=== PATIENT | female | born 1945 | race Caucasian/White ===

== ENCOUNTER 2017-05-07 02:44 | Inpatient (IN) | payer MEDICARE, MEDICAID ==
[~2017-05-07] VITALS: Ht 165.1 cm; Wt 75.0 kg
[~2017-05-07 02:44] MED LIST: ALLOPURINOL300 MG PO; ASMANEX 120220 MCG IN; ASPIRIN81 M1 OR; ASPIRIN81 MG PO; ATENOLOL50 MG OR; BYETTA5 MCG SC; CELEBREX200 MG OR; CELEBREX200 MG PO; CEPHALEXIN250 MG OR; CEPHALEXIN500 MG PO; CHILD'S ASA81 MG OR; CRESTOR10 MG PO; CRESTOR40 MG PO; CRESTOR5 MG PO; DARVOCET N-100100 - OR; DEXILANT60 MG PO; ELIQUIS5 MG PO; ENALAPRIL5 MG PO; FEXOFENADINE180 MG OR; FLAGYL500 MG PO; FLEXERIL PO; FLEXERIL10 MG PO; FLEXERIL5 MG PO; FLONASE NASAL50 MCG; GRALISE300 MG PO; ISOSORB DIN30 MG OR; LANTUS SC; LANTUS SOLOSTAR SC; LANTUS100 MG/ML SC; LEXAPRO10 MG OR; LEXAPRO10 MG PO; LORAZEPAM0.5 MG PO; LORAZEPAM1 MG OR; LORTAB 5 OR; LORTAB 7.5 PO; LORTAB 7.57.5 MG PO; MEDDOSEPAK PO; METFORMIN500 M1 PO; METFORMIN500 MG PO; METOPROL TAR100 M1 PO; MUPIROCIN2 % EX; NEURONTIN100 MG PO; NEURONTIN300 MG PO; NIASPAN500 MG PO; OMEPRAZOLE20 MG PO; PANTOPRAZOLE SO40 MG PO; PLAVIX75 MG PO; PREVACID30 M2 OR; PRILOSEC20 MG PO; PROTONIX40 M2 PO; QUININE PO; SIMVASTATIN80 MG PO; SINGULAIR 10 MG10 MG PO; SINGULAIR10 MG OR; SINGULAIR10 MG PO; SPIRIVA IN; TAMOXIFEN CITRA20 MG PO; TRULICITY0.75 MG/0. SC; VICTOZA18 MG/3 ML SC; WARFARIN5 MG PO; ZANTAC 150 MAX150 MG PO; ZOCOR40 MG OR; ZOFRAN4 MG/TAB PO; ZPAK PO; ZYRTEC-D AL1 OR; [UNRECOGNIZED DRUG - REMARK] PO
--- NOTE | 2017-05-07 02:44 | NUR ---
PT STRAIGHT BACK TO ROOM 10 AND TRIAGED.
[2017-05-07 03:20] LABS: HEMATOCRIT 40.6 % (37.0-47.0); IMMATURE GRANULOCYTES 0.2 % (0.0-1.0); MEAN CELL VOLUME 91.2 fL CALC (80.0-100.0); MEAN CORPUSCULAR HGB 29.2 pG CALC (26.0-32.0); NEUT# 2.99 thou/uL (2.00-7.15); RED BLOOD COUNT 4.45 mill/uL (4.20-5.60); RED CELL DISTRI WIDTH 14.3 % (11.5-15.5)
[2017-05-07 03:31] LABS: ANION GAP 17 (6-22 (CALC)); BUN 21 mg/dL (8-23); BUN/CREATININE RATIO 23 (12-20 (CALC)); CARBON DIOXIDE 24 mmol/l (22-30); CHLORIDE 100 mmol/l (95-108); CREATININE 0.9 mg/dL (0.5-1.0); GFR > 60 ML/MIN (>=60 (CALC)); GFR FOR AFR.AMER. > 60 ML/MIN (>=60 (CALC)); POTASSIUM 4.1 mmol/l (3.5-5.1); SODIUM 137 mmol/l (137-146)
[2017-05-07] MEDS ORDERED: PLAVIX75 MG PO (03:31)
[2017-05-07] MEDS ORDERED: XARELTO10 MG PO (03:31)
--- NOTE | 2017-05-07 03:32 | NUR ---
ASKED PT HOW LONG AGO HER MASTECTOMY WAS, PT NEVER MENTIONED IN TRIAGE, PT STATED 4 YRS AGO.
[2017-05-07 03:37] LABS: D-DIMER 1.09 mg/L (0.19-0.60); PROTHROMBIN TIME 11.3 SECONDS (9.0-12.5)
--- NOTE | 2017-05-07 03:44 | NUR ---
PT RESTING COMFORTABLY AT THIS TIME. SKIN W/P/D, O2 ON VIA CANNULA.
--- NOTE | 2017-05-07 04:00 | NUR ---
PT NEEDING NEW IV SITE DUE TO RIGHT MASTECTOMY AND NEEDING PE STUDY
--- NOTE | 2017-05-07 05:14 | NUR ---
PT RETURNED FROM XRAY. NO OBVIOUS DISTRESS, PLACED BACK ON MONITOR & PULSE OX. PLACED ON O2 VIA CANNULA. AWAITING CLINICAL DECISION ON ADMISSION OR DISCHARGE.
--- NOTE | 2017-05-07 05:59 | NUR ---
PT RESTING COMFORTABLY AT THIS TIME, AWAITING DECISION FOR ADMISSION OR DC.
--- NOTE | 2017-05-07 07:00 | NUR ---
REPORT RECEIVED FROM CINDI IN ED, PT ARRIVED ON UNIT @ 0706 AND SETTLED IN ROOM. ALERT AND ORIENTED X 4, DENIES PAIN AND REPORTED SHE HAD NITRO EARLIER WHICH GAVE HER A SEVERE HEADACHE BUT SHE LATER HAD TYLENOL WHICH RELIEVED PAIN. ORIENTED TO ROOM AND CALL METZ, EDUCATED ON FALL PRECAUTION AND DVT PROPHYLAXIS AND STATED UNDERSTANDING, WILL CONTINUE TO MONITOR.
[2017-05-07 07:02] LABS: CHOLESTEROL HDL RATIO 4.9 (<4.4 (CALC))
[2017-05-07 07:05] VITALS: BP 114/43
[2017-05-07 07:05] LABS: INFLUENZA A NONE DETECTED (NONE DETECT); INFLUENZA B NONE DETECTED (NONE DETECT)
--- NOTE | 2017-05-07 07:15 | NUR ---
Transfer Information Transferred To: Report Given to: Transported by: [facility] [employer] Other Transported with: Nurse Transporter Patent IV O2 Transit Bus Operator
--- NOTE | 2017-05-07 07:16 | NUR ---
REPORT CALLED TO RADHA GUAN ON MED/SURG.
[2017-05-07 07:33] LABS: TSH, 3RD GENERATION 4.26 uIU/mL (0.47 - 4.68)
[2017-05-07] MEDS ORDERED: LANTUS SOL100 UNIT/M SC ×2 (10:06)
[2017-05-07 10:30] VITALS: BP 111/42
[2017-05-07 11:00] VITALS: BP 120/51
--- NOTE | 2017-05-07 12:00 | NUR ---
AMBULATES INDEPENDENTLY IN ROOM, NO C/O DISCOMFORT, ALL NEEDS ADDRESSED, CALL METZ IN REACH.
[2017-05-07 15:55] VITALS: BP 113/43
--- NOTE | 2017-05-07 16:22 | NUR ---
Spoke to pt for medication education rounds. Pt notes no current pain or abdominal cramping. Denies side effects. Asked pt about BG control. Pt claims to take BG BID before meals and tries to keep her BG between 70 mg/dL (fasting) and 140 mg/dL (PP). Pt had no questions or concerns.
--- NOTE | 2017-05-07 17:00 | NUR ---
DR AGUIRRE ROUNDED, REQUEST HE NEEDS PT TO HAVE O2 IN PLACE, ADVISED PT HAD REFUSED EARLIER SO HE EXPLAINED REASON FOR ORDER FOR O2 AND PT ACCEPTED. HUMIDIFIED O2 APPLIED.
[2017-05-07 18:50] VITALS: BP 110/41
--- NOTE | 2017-05-07 19:15 | NUR ---
REPORT RECEIVED FROM ROGE DUGGAN;PT RESTING IN SEMI FOWLERS POSITION WATCHING TV;INTRODUCED SELF TO PT AND POC DISCUSSED;PT DENIES ANY NEEDS AT THIS;ENCOURAGED TO CALL FOR ASSISTANCE IF NEEDED;CALL LIGHT IN REACH;WILL CONTINUE TO MONITOR
--- NOTE | 2017-05-07 21:20 | NUR ---
PT RESTING IN SEMI FOWLERS POSITION;A&O X3;ASSESSMENT COMPLETED;RESPIRATIONS EVEN AND UNLABORED ON HUM OXYGEN @ 2L VIA NC,CLEAR LUNG SOUNDS NOTED;ABDOMEN SOFT UPON PALPATION;STRONG PEDAL PULSES;#20G TO LAC FLUSHED AND PATENT;TELE MONITOR IN PLACE;LIMB ALERT TO RIGHT HAND FROM HX OF MASTECTOMY NOTED;QHS LEVEMIR AND NOVOLOG HELD FOR BS OF 91,SNACK PROVIDED;PT DENIES ANY CP AT THIS TIME AND IS RE-EDUCATED ON PAIN SCALE AND REPORTING;PT ENCOURAGED TO CALL FOR ASSISTANCE IF NEEDED;FALL PRECAUTIONS IN PLACE WITH CALL LIGHT IN REACH;WILL CONTINUE TO MONITOR
[2017-05-08] VITALS (7 sets, daily range): BP systolic 96–177; BP diastolic 46–67
--- NOTE | 2017-05-08 | NUR ---
PT APPEARS TO BE SLEEPING IN SEMI FOWLERS POSITION;WOKE PT TO OBTAIN VS;RESPIRATIONS EVEN AND UNLABORED ON HUM O2 @ 2L VIA NC;TELE MONITOR IN PLACE;PT VOICES NO COMPLAINTS OF PAIN OR DISCOMFORTS;CALL LIGHT IN REACH;WILL CONTINUE TO MONITOR
[2017-05-08 05:30] LABS: HEMATOCRIT 38.4 % (37.0-47.0); HEMOGLOBIN 12.3 g/dl (12.0-16.0); IMMATURE GRANULOCYTES 0.3 % (0.0-1.0); MEAN CELL VOLUME 91.4 fL CALC (80.0-100.0); MEAN CORPUSCULAR HGB 29.3 pG CALC (26.0-32.0); NEUT# 4.26 thou/uL (2.00-7.15); RED BLOOD COUNT 4.2 mill/uL (4.20-5.60); RED CELL DISTRI WIDTH 14.3 % (11.5-15.5)
--- NOTE | 2017-05-08 05:39 | NUR ---
CALL RECEIVED FROM ELAN,LAB REPORTING CRITICAL GLUCOSE 39
[2017-05-08 05:40] LABS: ALBUMIN 3.2 g/dL (3.2-5.0); ALKALINE PHOSPHATASE 88 u/l (38-126); ANION GAP 14 (6-22 (CALC)); BILIRUBIN, TOTAL 0.3 mg/dL (0.0-1.4); BUN 19 mg/dL (8-23); BUN/CREATININE RATIO 20 (12-20 (CALC)); CARBON DIOXIDE 26 mmol/l (22-30); CHLORIDE 108 mmol/l (95-108); CREATININE 0.9 mg/dL (0.5-1.0); GFR > 60 ML/MIN (>=60 (CALC)); GFR FOR AFR.AMER. > 60 ML/MIN (>=60 (CALC)); POTASSIUM 4.2 mmol/l (3.5-5.1); SGOT/AST 35 u/l (9-36); SGPT/ALT 32 u/l (11-66); SODIUM 143 mmol/l (137-146); TOTAL PROTEIN 6.6 g/dL (6.3-8.2)
--- NOTE | 2017-05-08 05:40 | NUR ---
NOTIFIED OF CRITICAL GLUCOSE LEVEL;PEANUT BUTTER,TOBI CRACKERS AND ORANGE JUICE PROVIDED;WILL RE-CHECK IN 1 HOUR'PT VOICES NO COMPLAINTS OF WEAKNESS OR PAIN;RESPIRATIONS EVEN AND UNLABORED ON HUM O2 @ 2L;TELE MONITOR IN PLACE;WILL CONTINUE TO MONITOR
--- NOTE | 2017-05-08 06:20 | NUR ---
GLUCOSE RE-CHECK 80
--- NOTE | 2017-05-08 06:55 | NUR ---
GLUCOSE RE-CHECK 135
--- NOTE | 2017-05-08 07:37 | NUR ---
SHIFT CHANGE REPORT FROM ESAU GRECO SLEEPING BUT AWAKENED TO VERBAL STIMULI NO C/O DISCOMFORT AT THIS TIME, O2 @ 2L IN PLACE VIA NC, TELE MONITOR IN PLACE CALL METZ IN REACH.
--- NOTE | 2017-05-08 08:30 | NUR ---
PT RETURNED FROM XRAY.ALERT AND ORIENTED X3. PLEASANT AND CHATTY.PT STATES SHE HAD L ROTATOR CUFF SURGERY ON 04/23/17. PT HAS A HX OF FALLS; LAST FALL ON 04/24/17. SMALL INCISION SCAR TO LEFT ANTERIOR SHOULDER HEALED WELL; NO REDNESS OR EDEMA NOTED. PT ALSO STATED THAT SHE IS TO BE WEARING HER SLING PER DR WILKERSON OF HOLDERNESS TILL 05/24/17. SLING RE-APPLIED. PT HAS A LIMB ALERT BAND FOR HX OF RIGHT SIDED MASTECTOMY. PT NEUROLOGICALLY INTACT. PERRL.FACIAL SYMMETRY. WHEEZING NOTED ON LEFT LOWER LOBE. PT ON 2L VIA NASAL CANULA. SATS AT 97%. DUE TO HEART STENTS IRREGULAR HEART SOUNDS NOTED. PT ALSO HAS PACEMAKER. ACTIVE BOWEL SOUNDS NOTED IN ALL 4 QUADRANTS. APICAL AND PEDAL PULSES STRONG.#20 IN THE LAC; NO REDNESS OR EDEMA NOTED. CALL METZ IN REACH. BED IN LOWEST POSITION. WILL CONTINUE TO MONITOR. INTACT AND NO REDNESS OR EDEMA NOTED. PT VOICING NO NEW COMPLAINTS. NO DISTRESS NOTED.
--- NOTE | 2017-05-08 19:50 | NUR ---
REPORT RECEIVED FROM ROGE DUGGAN;UPON ENTERING ROOM PT RESTING IN BED WITH VISITOR AT BEDSIDE;INTRODUCED SELF TO PT AND POC DISCUSSED;PT DENIES ANY NEEDS AT THIS TIME;WILL CONTINUE TO MONITOR
--- NOTE | 2017-05-08 21:20 | NUR ---
PT RESTING IN SEMI FOWLERS POSITION WATCHING TV;A&O X3;ASSESSMENT COMPLETED;RESPIRATIONS EVEN AND UNLABORED ON HUM OXYGEN @ 2L VIA NC;CLEAR LUNG SOUNDS NOTED WITH NON PRODUCTIVE COUGH;ABDOMEN SOFT ON PALPATION;#20G TO LAC FLUSHED AND PATENT,SITE APPEARS HEALTHY;SLING TO LEFT ARM FROM ROTATOR CUFF SX ON 04/23,NO EDEMA OR REDDNESS PRESENT;SKIN INTACT;TELE MONITOR IN PLACE;SNACK PROVIDED PER PT REQUEST AND PM INSULIN GIVEN;LIMB ALERT IN PLACE FOR RIGHT MASECTOMY;PT VOICES NO COMPLAINTS OF PAIN AND IS ENCOURAGED TO REPORT ON PAIN SCALE;SAFETY PRECAUTIONS REINFORCED WITH BED IN THE LOWEST POSITION;CALL LIGHT IN REACH;WILL CONTINUE TO MONITOR
--- NOTE | 2017-05-08 23:10 | NUR ---
VS BEING OBTAINED BY RENATO DUKE;RESPIRATIONS EVEN AND UNLABORED ON HUM OXYGEN @ 2L VIA NC;PT DENIES ANY PAIN OR DICOMFORTS;TELE MONITOR IN PLACE;WILL CONTINUE TO MONITOR
--- NOTE | 2017-05-09 03:15 | NUR ---
RENATO CARTER AT BEDSIDE OBTAINING VS;ACCUCHECK 270;PT DENIES ANY PAIN OR DISCOMFORTS;RESPIRATIONS EVEN AND UNLABORED ON HUM OXYGEN @ 2L VIA NC;SLING TO LEFT ARM IN PLACE;TELE MONITOR NOTED;PT ENCOURAGED TO CALL FOR ASSISTANCE IF NEEDED;CALL LIGHT IN REACH;WILL CONTINUE TO MONITOR
[2017-05-09 07:35] VITALS: BP 115/49
--- NOTE | 2017-05-09 07:35 | NUR ---
ASSESSMENT IS COMPLETED: IV SITE IS FREE FROM REDNESS OR EDEMA. HR IS REG,PULSES ARE STRONG X4, ABD IS SOFT WITH ACTIVE BS. CONTINUE TO OBSERVE AND MONITOR. SLING IS INPLACE ON HER LEFT ARM.
[2017-05-09 11:00] VITALS: BP 138/50
--- NOTE | 2017-05-09 12:00 | NUR ---
PT HAS BEEN RELAXING IN BED AND AMBULATING IN THE [place] WITH NO DISTRESS NOTED. IV SITE IS FREE FROM REDNESS OR EDEMA. CONTINUE TO OBSERVE AND MONITOR.
--- NOTE | 2017-05-09 16:00 | NUR ---
PT IS RELAXING IN BED WITH NO DISTRESS NOTED. IV SITE IS FREE FROM REDNESS OR EDEMA.
[2017-05-09 16:43] VITALS: BP 105/50
--- NOTE | 2017-05-09 19:10 | NUR ---
REPORT RECEIVED FROM MARCIA HARRELL;PT RESTING IN BED WITH VISITOR AT BEDSIDE;INTRODUCED SELF TO PT AND POC DISCUSSED;TELE MONITOR IN PLACE;PT DENIES ANY OTHER NEEDS AT THIS TIME;WILL CONTINUE TO MONITOR
[2017-05-09 20:05] VITALS: BP 119/48
[2017-05-09 20:08] VITALS: BP 119/48
--- NOTE | 2017-05-09 21:20 | NUR ---
PT RESTING IN BED WATCHING TV;A&O X3;ASSESSMENT COMPLETED;RESPIRATIONS EVEN AND UNLABORED ON HUM OXYGEN @ 2L VIA NC, LUNG SOUNDS CLEAR WITH WHEEZES TO THE LLL;ABDOMEN SOFT ON PALPATION WITH ACTIVE BOWEL SOUNDS;SLING NOTED TO LEFT ARM FROM ROTATOR CUFF SX ON 04/23/17,SITE IS FREE FROM REDNESS OR EDEMA;#20G TO LAC FLUSHED AND PATENT,SITE APPEARS HEALTHY;TELE MONITOR IN PLACE;SNACK AND COFFEE PROVIDED PER PT REQUEST;SKIN INTACT;SAFETY PRECAUTIONS REINFORCED WITH BED IN THE LOWEST POSITION;PT ENCOURAGED TO CALL FOR ASSISTANCE IF NEEDED;CALL LIGHT WITHIN REACH;WILL CONTINUE TO MONITOR
--- NOTE | 2017-05-09 22:15 | NUR ---
PT AMBULATED ALL 3 HALLWAYS WITH A STEADY GAIT
[2017-05-10] VITALS (7 sets, daily range): BP systolic 88–154; BP diastolic 48–65
--- NOTE | 2017-05-10 00:40 | NUR ---
PT APPEARS TO BE SLEEPING WITH NO S/S OF DISTRESS NOTED;WOKE PT TO OBTAIN VS;RESPIRATIONS EVEN AND UNLABORED ON HUM OXYGEN @ 2L;TELE MONITOR IN PLACE;NON-PRODUCTIVE COUGH NOTED;PT DENIES ANY NEEDS AT THIS TIME;WILL CONTINUE TO MONITOR
--- NOTE | 2017-05-10 03:30 | NUR ---
PT APPEARS TO BE SLEEPING IN SEMI FOWLERS POSITION;RESPIRATIONS EVEN AND UNLABORED ON HUM OXYGEN @ 2L VIA NC;TELE MONITOR IN PLACE;NO S/S OF DISTRESS NOTED;CALL LIGHT IN REACH;WILL CONTINUE TO MONITOR
[2017-05-10 06:11] LABS: HEMATOCRIT 36.6 % (37.0-47.0); HEMOGLOBIN 11.9 g/dl (12.0-16.0); IMMATURE GRANULOCYTES 0.3 % (0.0-1.0); MEAN CELL VOLUME 90.1 fL CALC (80.0-100.0); MEAN CORPUSCULAR HGB 29.3 pG CALC (26.0-32.0); MEAN CORPUSCULAR HGB CONC 32.5 g/L CALC (32.0-36.0); NEUT# 3.05 thou/uL (2.00-7.15); RED BLOOD COUNT 4.06 mill/uL (4.20-5.60); RED CELL DISTRI WIDTH 13.7 % (11.5-15.5)
[2017-05-10 06:29] LABS: ALBUMIN 3.2 g/dL (3.2-5.0); BILIRUBIN, TOTAL 0.3 mg/dL (0.0-1.4); CREATININE 1.1 mg/dL (0.5-1.0); POTASSIUM 4.6 mmol/l (3.5-5.1); TOTAL PROTEIN 6.4 g/dL (6.3-8.2)
--- NOTE | 2017-05-10 06:30 | NUR ---
PT TRANSFERRED OFF FLOOR TO X-RAY VIA WC IN STABLE CONDITION ACCOMPANIED BY RENATO CRUZ
--- NOTE | 2017-05-10 06:40 | NUR ---
PT RETURNED TO FLOOR IN STABLE CONDITION WITH RENATO CRUZ
--- NOTE | 2017-05-10 07:25 | NUR ---
ASSESSMENT IS COMPLETED: IV SITE IS FREE FROM REDNESS OR EDEMA. BREATH SOUNDS ARE CLEAR, BILATERALLY, NO C/O SOB, HR IS REG,PULSES ARE STRONGX4. CONTINUE TO OSBERVE AND MONITOR. SLING INPLACE ON LEFT ARM. TELE MONITOR IN PLACE.
--- NOTE | 2017-05-10 12:00 | NUR ---
PT IS RELAXING IN BED WITH NO DISTRESS NOTED. IV STIE IS FREE FROM REDNESS OR EDMEA. CONTINUE TO OSBERVE AND MONITOR.
--- NOTE | 2017-05-10 15:43 | NUR ---
PT IS RELAXING IN BED WITH NO DISTRESS NTOED. IV SITE IS FREE FROM REDNESS OR EDEAM.
--- NOTE | 2017-05-10 19:20 | NUR ---
REPORT RECIEVED; PT RESTING IN SEMI FOWLERS POSITION. PT DENIES ANY PAIN OR DISCOMFORT. SAFETY PRECAUTIONS REINFORCED. PT ENCOURAGED TO CALL FOR ASSISTANCE. FREQUENT ROUNDS MADE. CALL LIGHT WITHIN REACH.
--- NOTE | 2017-05-10 20:20 | NUR ---
FAMILY AT BEDSIDE; PT ALERT AND ORIENTED. PT DENIES ANY PAIN OR DISCOMFORT. LUNGS CLEAR; DIMINISHED IN BASES. TELE IN PLACE. ABD SOFT; ACTIVE BOWEL SOUNDS NOTED. PEDAL PULSES PALPATED BILAT. RIGHT ARM LIMB ALERT BAND IN PLACE. IV LAC PATENT; FLUSHED WITHOUT ANY DIFFICULTY. LEFT ARM SLING IN PLACE. PT ENCOURAGED TO CALL FOR ASSISTANCE. SAFETY PRECAUTIONS REINFORCED. PT ENCOURAGED TO USE INCENTIVE SPIROMETER. CALL LIGHT WITHIN REACH.
--- NOTE | 2017-05-11 00:15 | NUR ---
PT DENIES ANY PAIN OR DISCOMFORT. RESP EVEN AND UNLABORED. TELE IN PLACE. SAFETY PRECAUTIONS REINFORCED. CALL LIGHT WITHIN REACH.
--- NOTE | 2017-05-11 04:15 | NUR ---
RESP EVEN AND UNLABORED; NO DISTRESS NOTED. TELE IN PLACE. CALL LIGHT WITHIN REACH. ASSESSMENT UNCHANGED.
[2017-05-11 04:50] VITALS: BP 116/58
[2017-05-11 05:44] LABS: ANION GAP 15 (6-22 (CALC)); BUN 27 mg/dL (8-23); BUN/CREATININE RATIO 28 (12-20 (CALC)); CARBON DIOXIDE 26 mmol/l (22-30); CHLORIDE 102 mmol/l (95-108); GFR 55 ML/MIN (>=60 (CALC)); GFR FOR AFR.AMER. > 60 ML/MIN (>=60 (CALC)); POTASSIUM 4.5 mmol/l (3.5-5.1); SODIUM 138 mmol/l (137-146)
[2017-05-11 05:49] LABS: HEMATOCRIT 37.7 % (37.0-47.0); HEMOGLOBIN 12.2 g/dl (12.0-16.0); IMMATURE GRANULOCYTES 0.3 % (0.0-1.0); MEAN CELL VOLUME 90.6 fL CALC (80.0-100.0); MEAN CORPUSCULAR HGB 29.3 pG CALC (26.0-32.0); MEAN CORPUSCULAR HGB CONC 32.4 g/L CALC (32.0-36.0); NEUT# 3.31 thou/uL (2.00-7.15); RED BLOOD COUNT 4.16 mill/uL (4.20-5.60); RED CELL DISTRI WIDTH 13.7 % (11.5-15.5)
--- NOTE | 2017-05-11 07:00 | NUR ---
BEDIDE REPORT RECEIVED BY JÚNIOR. PT IS RESTING IN BED AND DENIES NEEDS AT THIS TIME. CALL LIGHT IN REACH.
[2017-05-11 08:00] VITALS: BP 90/48
--- NOTE | 2017-05-11 08:00 | NUR ---
PT IS SEMI FOWLERS. ASSESSMENT DONE AND TELE IN PLACE. # 20 LAC THAT APPEARS HEALTHLY. LUNGS SOUND DIMINISHED AND O2 2L/MIN VIA NC. PT STATED THAT SHE HAS A HEADACHE BUT REFUSED MEDICATION AND A COLD WASHCLOTH GIVEN FOR COMFORT. ORIENTED TO CALL LIGHT SYSTEM AND SAFETY PRECAUTIONS REINFORCED. PT DENIES ANY OTHER NEEDS AT THIS TIME.
[2017-05-11] MEDS ORDERED: LEVAQUIN750 MG PO (08:31)
[2017-05-11] MEDS ORDERED: [UNRECOGNIZED DRUG - REMARK] PO (08:31)
[2017-05-11] MEDS ORDERED: TRULICITY0.75 MG/0. SC (08:32)
[2017-05-11] MEDS ORDERED: LANTUS100 UNIT/M SC (08:33)
[2017-05-11 10:54] VITALS: BP 102/49
--- NOTE | 2017-05-11 10:55 | NUR ---
PT WAS ASKED AGAIN IF SHE WANTS TO SHOWER AND LINEN CHANGED, PT STATED THAT SHE'S GOING HOME.
--- NOTE | 2017-05-11 12:46 | NUR ---
Discharge instructions given. Patient verbalizes understanding of same. Discharged in stable condition via Wheelchair to Home. All belongings sent with pt.
== END 2017-05-11 12:47 | disposition home or self-care (01) | DRG 195 ==
LOC: ED 02:44 → ED-I 05:48 → ED 06:08 → MS2 06:09
PROVIDERS: Family Medicine; ADMIT Internal Medicine Geriatric Medicine; ATTEND Internal Medicine Geriatric Medicine
DX: J18.9 Pneumonia, unspecified organism (principal); E11.42 Type 2 diabetes mellitus with diabetic polyneuropathy; E11.51 Type 2 diabetes mellitus with diabetic peripheral angiopathy without gangrene; R07.89 Other chest pain; I25.10 Atherosclerotic heart disease of native coronary artery without angina pectoris; I11.0 Hypertensive heart disease with heart failure; I50.9 Heart failure, unspecified; E11.649 Type 2 diabetes mellitus with hypoglycemia without coma; E11.65 Type 2 diabetes mellitus with hyperglycemia; J44.9 Chronic obstructive pulmonary disease, unspecified; E78.5 Hyperlipidemia, unspecified; K21.9 Gastro-esophageal reflux disease without esophagitis; K27.9 Peptic ulcer, site unspecified, unspecified as acute or chronic, without hemorrhage or perforation; M19.90 Unspecified osteoarthritis, unspecified site; E03.9 Hypothyroidism, unspecified; M85.80 Other specified disorders of bone density and structure, unspecified site; Z95.0 Presence of cardiac pacemaker; Z85.3 Personal history of malignant neoplasm of breast; Z95.1 Presence of aortocoronary bypass graft; Z95.5 Presence of coronary angioplasty implant and graft; Z79.4 Long term (current) use of insulin

== ENCOUNTER 2017-09-11 15:16 | Emergency (ER) | payer MEDICARE, MEDICAID ==
[~2017-09-11] VITALS: Ht 165.1 cm; Wt 66.8 kg
[~2017-09-11 15:16] MED LIST changes: +LANTUS SOL100 UNIT/M SC; +LANTUS100 UNIT/M SC; +LEVAQUIN750 MG PO; +XARELTO10 MG PO
[2017-09-11 15:59] LABS: HEMOGLOBIN 13.9 g/dl (12.0-16.0); IMMATURE GRANULOCYTES 0.3 % (0.0-1.0); MEAN CELL VOLUME 86.5 fL CALC (80.0-100.0); MEAN CORPUSCULAR HGB CONC 32.3 g/L CALC (32.0-36.0); NEUT# 3.85 thou/uL (2.00-7.15); RED BLOOD COUNT 4.97 mill/uL (4.20-5.60); RED CELL DISTRI WIDTH 14.8 % (11.5-15.5)
[2017-09-11 16:11] LABS: ALBUMIN 4.1 g/dL (3.2-5.0); ALKALINE PHOSPHATASE 135 u/l (38-126); ANION GAP 13 (6-22 (CALC)); BILIRUBIN, TOTAL 0.6 mg/dL (0.0-1.4); BUN 28 mg/dL (8-23); BUN/CREATININE RATIO 24 (12-20 (CALC)); CARBON DIOXIDE 25 mmol/l (22-30); CHLORIDE 100 mmol/l (95-108); CREATININE 1.2 mg/dL (0.5-1.0); GFR 45 ML/MIN (>=60 (CALC)); GFR FOR AFR.AMER. 54 ML/MIN (>=60 (CALC)); POTASSIUM 4.2 mmol/l (3.5-5.1); SGOT/AST 45 u/l (9-36); SGPT/ALT 36 u/l (11-66); SODIUM 134 mmol/l (137-146)
[2017-09-11 16:16] LABS: INTERNATIONAL NORMALIZED RATIO 1.1 RATIO (0.7-1.3); PROTHROMBIN TIME 11.8 SECONDS (9.0-12.5)
[2017-09-11 17:08] VITALS: BP 157/69
== END 2017-09-11 17:25 | disposition short-term general hospital (02) ==
LOC: ED 15:16
PROVIDERS: Emergency Medicine
DX: I63.9 Cerebral infarction, unspecified (principal); Z95.1 Presence of aortocoronary bypass graft; R20.0 Anesthesia of skin; Z95.0 Presence of cardiac pacemaker; Z86.73 Personal history of transient ischemic attack (TIA), and cerebral infarction without residual deficits; I10 Essential (primary) hypertension; I25.810 Atherosclerosis of coronary artery bypass graft(s) without angina pectoris; R29.705 NIHSS score 5; I65.23 Occlusion and stenosis of bilateral carotid arteries
CPT/HCPCS: Q9967

== ENCOUNTER 2018-01-13 11:53 | Observation (INO) | payer MEDICARE, MEDICAID ==
[~2018-01-13] VITALS: Ht 165.1 cm; Wt 69.2 kg
[2018-01-13 12:52] LABS: HEMATOCRIT 39.8 % (37.0-47.0); IMMATURE GRANULOCYTES 0.4 % (0.0-5.0); MEAN CELL VOLUME 87.5 fL CALC (80.0-100.0); MEAN CORPUSCULAR HGB 28.6 pG CALC (26.0-32.0); MEAN CORPUSCULAR HGB CONC 32.7 g/L CALC (32.0-36.0); NEUT# 10.2 thou/uL (2.00-7.15); RED BLOOD COUNT 4.55 mill/uL (4.20-5.60); RED CELL DISTRI WIDTH 14.7 % (11.5-15.5)
[2018-01-13 13:15] LABS: ALBUMIN 3.8 g/dL (3.2-5.0); ALKALINE PHOSPHATASE 145 u/l (38-126); ANION GAP 17 (6-22 (CALC)); BUN 18 mg/dL (8-23); BUN/CREATININE RATIO 20 (12-20 (CALC)); CARBON DIOXIDE 26 mmol/l (22-30); CHLORIDE 98 mmol/l (95-108); CREATININE 0.9 mg/dL (0.5-1.0); GFR > 60 ML/MIN (>=60 (CALC)); GFR FOR AFR.AMER. > 60 ML/MIN (>=60 (CALC)); POTASSIUM 4.2 mmol/l (3.5-5.1); SGOT/AST 46 u/l (9-36); SODIUM 137 mmol/l (137-146); TOTAL PROTEIN 8.6 g/dL (6.3-8.2)
[2018-01-13 14:36] LABS: INFLUENZA A NONE DETECTED (NONE DETECT); INFLUENZA B NONE DETECTED (NONE DETECT)
[2018-01-13] MEDS ORDERED: LANTUS100 UNIT/M SC ×2 (15:07→15:08)
[2018-01-13] MEDS ORDERED: ATORVASTATIN CA10 MG PO (15:11)
[2018-01-13] MEDS ORDERED: ASPIRIN 81 LOW81 MG PO (15:12)
[2018-01-13] MEDS ORDERED: SYMBICORT1 AE1 IN (15:12)
[2018-01-13 16:42] VITALS: BP 153/76
[2018-01-13 20:14] VITALS: BP 127/57
[2018-01-13 21:32] LABS: ANION GAP 17 (6-22 (CALC)); BUN 22 mg/dL (8-23); BUN/CREATININE RATIO 25 (12-20 (CALC)); CARBON DIOXIDE 23 mmol/l (22-30); CHLORIDE 96 mmol/l (95-108); CREATININE 0.9 mg/dL (0.5-1.0); GFR > 60 ML/MIN (>=60 (CALC)); GFR FOR AFR.AMER. > 60 ML/MIN (>=60 (CALC)); POTASSIUM 3.9 mmol/l (3.5-5.1); SODIUM 133 mmol/l (137-146)
[2018-01-14] VITALS: BP 130/51
[2018-01-14 04:00] VITALS: BP 145/63
[2018-01-14 05:33] LABS: HEMATOCRIT 34.7 % (37.0-47.0); HEMOGLOBIN 11.4 g/dl (12.0-16.0); MEAN CELL VOLUME 87.4 fL CALC (80.0-100.0); MEAN CORPUSCULAR HGB 28.7 pG CALC (26.0-32.0); MEAN CORPUSCULAR HGB CONC 32.9 g/L CALC (32.0-36.0); NEUT# 8.53 thou/uL (2.00-7.15); RED BLOOD COUNT 3.97 mill/uL (4.20-5.60); RED CELL DISTRI WIDTH 14.6 % (11.5-15.5)
[2018-01-14 05:40] LABS: ALBUMIN 3.3 g/dL (3.2-5.0); ALKALINE PHOSPHATASE 109 u/l (38-126); ANION GAP 15 (6-22 (CALC)); BILIRUBIN, TOTAL 0.5 mg/dL (0.0-1.4); BUN 25 mg/dL (8-23); BUN/CREATININE RATIO 30 (12-20 (CALC)); CALCULATED LDLCHOLESTEROL 100 mg/dL (62-129 (CALC)); CARBON DIOXIDE 25 mmol/l (22-30); CHLORIDE 101 mmol/l (95-108); CREATININE 0.8 mg/dL (0.5-1.0); GFR > 60 ML/MIN (>=60 (CALC)); GFR FOR AFR.AMER. > 60 ML/MIN (>=60 (CALC)); HDL CHOLESTEROL 37 mg/dL (>=40); POTASSIUM 4.1 mmol/l (3.5-5.1); SGOT/AST 34 u/l (9-36); SODIUM 137 mmol/l (137-146); TOTAL CHOLESTEROL 150 mg/dl (0-199); TOTAL PROTEIN 7.4 g/dL (6.3-8.2); TOTAL TRIGLYCERIDES 64 mg/dl (30-149); VLDL CHOLESTROL 13 mg/dl (0-48 (CALC))
[2018-01-14 08:19] VITALS: BP 166/69
[2018-01-14 11:21] VITALS: BP 109/54
[2018-01-14 15:20] VITALS: BP 138/70
[2018-01-14 20:00] VITALS: BP 135/58
[2018-01-15 00:39] VITALS: BP 137/60
[2018-01-15 04:00] VITALS: BP 140/87
[2018-01-15 05:30] LABS: HEMATOCRIT 35.1 % (37.0-47.0); HEMOGLOBIN 11.6 g/dl (12.0-16.0); IMMATURE GRANULOCYTES 0.5 % (0.0-5.0); MEAN CELL VOLUME 88.2 fL CALC (80.0-100.0); MEAN CORPUSCULAR HGB 29.1 pG CALC (26.0-32.0); NEUT# 8.28 thou/uL (2.00-7.15); RED BLOOD COUNT 3.98 mill/uL (4.20-5.60); RED CELL DISTRI WIDTH 14.7 % (11.5-15.5)
[2018-01-15 05:49] LABS: ALBUMIN 3.1 g/dL (3.2-5.0); ALKALINE PHOSPHATASE 101 u/l (38-126); ANION GAP 13 (6-22 (CALC)); BILIRUBIN, TOTAL 0.3 mg/dL (0.0-1.4); BUN 31 mg/dL (8-23); BUN/CREATININE RATIO 37 (12-20 (CALC)); CARBON DIOXIDE 30 mmol/l (22-30); CHLORIDE 102 mmol/l (95-108); CREATININE 0.8 mg/dL (0.5-1.0); GFR > 60 ML/MIN (>=60 (CALC)); GFR FOR AFR.AMER. > 60 ML/MIN (>=60 (CALC)); POTASSIUM 3.4 mmol/l (3.5-5.1); SGOT/AST 33 u/l (9-36); SODIUM 141 mmol/l (137-146)
[2018-01-15 07:50] VITALS: BP 107/52
[2018-01-15 12:30] VITALS: BP 107/63
[2018-01-15 16:24] VITALS: BP 124/62
[2018-01-15 20:00] VITALS: BP 126/64
[2018-01-16 00:41] VITALS: BP 123/61
[2018-01-16 04:00] VITALS: BP 114/56
[2018-01-16 04:53] LABS: HEMATOCRIT 36.2 % (37.0-47.0); HEMOGLOBIN 11.7 g/dl (12.0-16.0); IMMATURE GRANULOCYTES 0.5 % (0.0-5.0); MEAN CELL VOLUME 89.4 fL CALC (80.0-100.0); MEAN CORPUSCULAR HGB 28.9 pG CALC (26.0-32.0); MEAN CORPUSCULAR HGB CONC 32.3 g/L CALC (32.0-36.0); NEUT# 3.3 thou/uL (2.00-7.15); RED BLOOD COUNT 4.05 mill/uL (4.20-5.60); RED CELL DISTRI WIDTH 14.6 % (11.5-15.5)
[2018-01-16 05:10] LABS: ALBUMIN 3.2 g/dL (3.2-5.0); ALKALINE PHOSPHATASE 104 u/l (38-126); ANION GAP 12 (6-22 (CALC)); BILIRUBIN, TOTAL 0.3 mg/dL (0.0-1.4); BUN 33 mg/dL (8-23); BUN/CREATININE RATIO 35 (12-20 (CALC)); CARBON DIOXIDE 32 mmol/l (22-30); CHLORIDE 99 mmol/l (95-108); CREATININE 0.9 mg/dL (0.5-1.0); GFR > 60 ML/MIN (>=60 (CALC)); GFR FOR AFR.AMER. > 60 ML/MIN (>=60 (CALC)); SGOT/AST 31 u/l (9-36); SODIUM 139 mmol/l (137-146)
[2018-01-16 05:18] LABS: POTASSIUM 4.1 mmol/l (3.5-5.1)
[2018-01-16 08:10] VITALS: BP 113/58
[2018-01-16 12:00] VITALS: BP 137/56
== END 2018-01-16 12:57 | disposition home or self-care (01) ==
LOC: ED 11:53 → ED-I 14:58 → ED 15:24 → MS2 15:25
PROVIDERS: Emergency Medicine; ADMIT Internal Medicine Geriatric Medicine; ATTEND Internal Medicine Geriatric Medicine
DX: I11.0 Hypertensive heart disease with heart failure (principal); I50.9 Heart failure, unspecified; E11.51 Type 2 diabetes mellitus with diabetic peripheral angiopathy without gangrene; E11.42 Type 2 diabetes mellitus with diabetic polyneuropathy; I25.10 Atherosclerotic heart disease of native coronary artery without angina pectoris; J44.9 Chronic obstructive pulmonary disease, unspecified; E78.5 Hyperlipidemia, unspecified; R09.02 Hypoxemia; Z95.5 Presence of coronary angioplasty implant and graft; Z95.1 Presence of aortocoronary bypass graft; Z86.73 Personal history of transient ischemic attack (TIA), and cerebral infarction without residual deficits; Z79.4 Long term (current) use of insulin; Z85.3 Personal history of malignant neoplasm of breast
CPT/HCPCS: Q9967

== ENCOUNTER 2018-10-28 12:31 | Inpatient (IN) | payer MEDICARE, MEDICAID ==
[~2018-10-28] VITALS: Ht 165.1 cm; Wt 56.5 kg
[2018-10-28] VITALS (12 sets, daily range): BP systolic 102–146; BP diastolic 39–89
[~2018-10-28 12:31] MED LIST changes: +ASPIRIN 81 LOW81 MG PO; +ATORVASTATIN CA10 MG PO; +SYMBICORT1 AE1 IN
--- NOTE | 2018-10-28 12:47 | NUR ---
PT ARRIVED TO MED/SURG ROOM 261 IN STABLE CONDITION ACCOMPANIED BY FAMILY MEMBER;PT AMBULATED TO STANDING SCALE AND BEDSIDE WITH WEAK GAIT AND 1 PERSON ASSIST;WT AND VS OBTAINED BY RENATO CRUZ;PT A&O X3, ORIENTED TO ROOM AND CALL LIGHT SYSTEM;PT REPORTS FEELING WEAK FOR 1 WEEK AND HAVING BLOODY STOOLS;PT DENIES ANY CURRENT PAIN OR DISCOMFORTS,PAIN SCALE AND REPORTING EDUCATED;ASSESSMENT COMPLETED;RESPIRATIONS EVEN AND UNLABORED ON O2 @ 2L VIA NC, PT IS O2 DEPENDENT. CLEAR/DIMINISHED LUNG SOUNDS;ABDOMEN SOFT ON PALPATION AND ACTIVE IN ALLL 4 QUADRANTS,LAST BM 10/27/18;WEAK PEDAL PULSES;SKIN INTACT;#22G STARTED TO LFA ON 2ND ATTEMPT BY THIS WRITTER, NS TO BE STARTED @ 100ML/HR PER ORDER;ACCUCHECK 190 OBTAINED;TELE MONITORING TO BE PLACED ON PT;LIMB ALERT TO RIGHT ARM AND CONTACT PRECAUTIONS FOR HX OF MRSA;PT DENIES ANY ADDITIONAL NEEDS AT THIS TIME AND IS ENCOURAGED TO CALL FOR ASSISTANCE IF NEEDED;FALL PRECAUTIONS IN PLACE WITH CALL LIGHT IN REACH;WILL CONTINUE TO MONITOR
--- NOTE | 2018-10-28 13:40 | NUR ---
RT MENDEL AT BEDSIDE OBTAINING EKG.
--- NOTE | 2018-10-28 13:54 | NUR ---
LAB AT BEDSIDE
[2018-10-28 14:16] LABS: IMMATURE GRANULOCYTES 0.5 % (0.0-5.0); MEAN CELL VOLUME 80.3 fL CALC (80.0-100.0); MEAN CORPUSCULAR HGB 24.8 pG CALC (26.0-32.0); MEAN CORPUSCULAR HGB CONC 30.8 g/L CALC (32.0-36.0); NEUT# 5.86 thou/uL (2.00-7.15); RED BLOOD COUNT 3.15 mill/uL (4.20-5.60); RED CELL DISTRI WIDTH 18.7 % (11.5-15.5)
[2018-10-28 14:18] LABS: HEMATOCRIT 25.3 % (37.0-47.0); HEMOGLOBIN 7.8 g/dl (12.0-16.0)
[2018-10-28 14:29] LABS: ALBUMIN 3.9 g/dL (3.2-5.0); BILIRUBIN, TOTAL 0.5 mg/dL (0.0-1.4); CREATININE 1.8 mg/dL (0.5-1.0); TOTAL PROTEIN 8.1 g/dL (6.3-8.2)
[2018-10-28 14:40] LABS: ACT PARTIAL THROMBO TIME 27.1 SECONDS (20.0-32.5); INTERNATIONAL NORMALIZED RATIO 1.1 RATIO (0.7-1.3); PROTHROMBIN TIME 11.4 SECONDS (9.0-12.5)
--- NOTE | 2018-10-28 14:40 | NUR ---
PT TRANSPORTED TO [facility] VIA WHEELCHAIR IN STABLE CONDITION ACCOMPANIED BY RENATO ROBERTS.
--- NOTE | 2018-10-28 14:49 | NUR ---
LAB REPORTED CRITICAL BUN OF 95. MD TO BE NOTIFIED.
[2018-10-28 14:50] LABS: POTASSIUM 5.7 mmol/l (3.5-5.1)
--- NOTE | 2018-10-28 14:57 | NUR ---
NOTIFIED OF CRITICAL BUN OF 95. NEW ORDERS RECIEVED.
--- NOTE | 2018-10-28 15:01 | NUR ---
PT ARRIVED BACK TO MED/SURG ROOM 261 VIA WHEELCHAIR IN STABLE CONDITION.
--- NOTE | 2018-10-28 15:59 | NUR ---
INFORMED CONSENT OBTAINED FOR BLOOD PRODUCTS.
--- NOTE | 2018-10-28 16:53 | NUR ---
1ST UNIT OF PRBC'S STARTED AT THIS TIME WITH VERIFICATION BY ROGE GOMEZ;S/S OF A BLOOD TRANSFUSION REACTION EXPLAINED AND PT VERBALIZES UNDERSTANDING;ROGE DA SILVA TO REMAIN AT BEDSIDE FOR INITIAL 15MINS;WILL CONTINUE TO MONITOR
--- NOTE | 2018-10-28 16:54 | NUR ---
AT BEDSIDE DISCUSSING POC.
--- NOTE | 2018-10-28 17:40 | NUR ---
18F CONNELLY PLACED AT THIS TIME USING STERILE TECHNIQUE; PT TOLERATED WELL.
[2018-10-28 18:13] LABS: URINE BILIRUBIN - DIPSTICK NEGATIVE (NEGATIVE); URINE BLOOD DIPSTICK NEGATIVE (NEGATIVE); URINE COLOR YELLOW; URINE GLUCOSE - DIPSTICK 100 mg/dL (NEGATIVE); URINE KETONE NEGATIVE (NEGATIVE); URINE LEUK ESTERASE NEGATIVE (Negative); URINE NITRITE - DIPSTICK NEGATIVE (Negative); URINE PROTEIN - DIPSTICK NEGATIVE (NEG-TRACE); URINE SPECIFIC GRAVITY <=1.005; URINE UROBILINOGEN - DIPSTICK 0.2 E.U./dL (0.2)
[2018-10-28 18:20] LABS: URINE CLARITY CLEAR
--- NOTE | 2018-10-28 19:00 | NUR ---
RECEIVED REPORT FROM NURSE FANNIE, PATIENT CURRENTLY RESTING IN BED, WATCHING TV, HOOKED TO 1ST UNIT OF BLOOD, HOOKED TO O2 @2LPM VIA NC, WITH EVEN UNLABORED BREATHING CALL LIGHT AT REACH.
--- NOTE | 2018-10-28 19:35 | NUR ---
1ST UNIT OF PRBC CONSUMED AT THIS TIME, NO ALLERGIC REACTIONS NOTED THROUGOUT INFUSION.
--- NOTE | 2018-10-28 20:09 | NUR ---
2ND UNIT OF PRBC STARTED AT THIS TIME, BLOOD VERIFIED BY ANOTHER NURSE, PATIENT CURRENTLY RESTING IN BED WATCHING TV CALL LIGHT AT REACH.
--- NOTE | 2018-10-28 23:44 | NUR ---
2ND UNIT OF PRBC CONSUMED AT THIS TIME, DENIES PAIN OR DISCOMFORT NO ALLERGIC REACTION NOTED THROUGH OUT INFUSION.
--- NOTE | 2018-10-29 04:00 | NUR ---
PATIENT RESTING IN BED, WATCHING TV, REMAINS ON O2 @2LPM VIA NC, WITH EVEN UNLABORED BREATHING CALL LIGHT AT REACH.
[2018-10-29 04:53] VITALS: BP 102/47
[2018-10-29 05:14] LABS: IMMATURE GRANULOCYTES 0.3 % (0.0-5.0); MEAN CELL VOLUME 81.1 fL CALC (80.0-100.0); MEAN CORPUSCULAR HGB 26.3 pG CALC (26.0-32.0); MEAN CORPUSCULAR HGB CONC 32.4 g/L CALC (32.0-36.0); NEUT# 3.89 thou/uL (2.00-7.15); RED BLOOD COUNT 3.92 mill/uL (4.20-5.60); RED CELL DISTRI WIDTH 17.2 % (11.5-15.5)
[2018-10-29 05:27] LABS: HEMATOCRIT 31.8 % (37.0-47.0); HEMOGLOBIN 10.3 g/dl (12.0-16.0)
[2018-10-29 05:45] LABS: ALBUMIN 3.4 g/dL (3.2-5.0); CREATININE 1.4 mg/dL (0.5-1.0); TOTAL PROTEIN 7.4 g/dL (6.3-8.2)
[2018-10-29 05:49] LABS: BILIRUBIN, TOTAL 1.4 mg/dL (0.0-1.4); POTASSIUM 5.2 mmol/l (3.5-5.1)
--- NOTE | 2018-10-29 07:05 | NUR ---
RE[PRT RECEIVED FROM ROXANNERN;PT RESTING IN SEMI FOWLERS POSITION;INTRODUCED SELF TO PT AND POC DISCUSSED;RESPIRATIONS EVEN AND UNLABORED ON O2 @ 2L VIA NC;PT DENIES ANY CURRENT PAIN OR DISCOMFORTS;IV FLUIDS INFUSING TO LFA WITH EASE;CONNELLY CATHETER NOTED;ACCUCHECK 120;TELE MONITORING IN PLACE;CONTACT PRECAUTIONS FOR HX OF MRSA;PT DENIES ANY ADDITIONAL NEEDS AND IS ENCOURAGED TO CALL FOR ASSISTANCE IF NEEDED;CALL LIGHT IN REACH;WILL CONTINUE TO MONITOR
--- NOTE | 2018-10-29 08:28 | NUR ---
AT BEDSIDE DISCUSSING POC WITH PT.
--- NOTE | 2018-10-29 09:10 | NUR ---
PT RESTING IN SEMI FOWLERS POSITION, A&O X3;VS OBTAINED AND ASSESSMENT COMPLETED;PT DENIES ANY CURENT PAIN OR DISCOMFORTS, PAIN SCALE AND REPORTING EDUCATED;RESPIRATIONS EVEN AND UNLABORED ON O2 @ 2L VIA NC, DIMINISHED LUNG SOUNDS;ABDOMEN SOFT ON PALPATION AND ACTIVE IN ALL 4 QUADRANTS;CONNELLY CATHETER PATENT DRAINING CLEAR/YELLOW URINE TO GRAVITY, STAT LOCK TO RIGHT THIGH;WEAK PEDAL PULSES;SKIN INTACT;TELE MONITORING IN PLACE;#22G TO LEFT FOREARM INFUSING NS @ 100ML/HR,SITE APPEARS HEALTHY, ABX HUNG AT THIS TIME;PT DENIES ANY ADDITIONAL NEEDS AND IS ENCOURAGED TO CALL FOR ASSISTANCE IF NEEDED;CALL LIGHT IN REACH;WILL CONTINUE TO MONITOR
[2018-10-29 09:13] VITALS: BP 115/59
--- NOTE | 2018-10-29 11:00 | NUR ---
PT RESTING IN SEMI FOWLERS POSITION;RESPIRATIONS EVEN AND UNLABORED ON O2 @ 2L VIA NC;PT DENIES ANY CURRENT PAIN OR DISCOMFORTS;IV FLUIDS INFUSING TO LFA WITH EASE;TELE MONITORING IN PLACE;CONNELLY CATHETER PATENT;ACCUCHECK 266, PT COVERED WITH SLIDING SCALE INSULIN AT THIS TIME;ASSESSMENT REMAINS UNCHANGED;PT DENIES ANY ADDITIONAL NEEDS AND IS ENCOURAGED TO CALL FOR ASSISTANCE IF NEEDED;CALL LIGHT IN REACH;WILL CONTINUE TO MONITOR
[2018-10-29 11:05] VITALS: BP 117/50
--- NOTE | 2018-10-29 15:45 | NUR ---
PT RESTING IN SEMI FOWLERS POSITION WATCHING TV;RESPIRATIONS EVEN AND UNLABORED ON O2 @ 2L VIA NC;PT DENIES ANY CURRENT PAIN OR NEEDS;IV SITE REMAINS PATENT INFUSING TO LFA WITH EASE;CONNELLY CATHETER HANGING TO GRAVITY;TELE MONITORING IN PLACE;PT ENCOURAGED TO CALL FOR ASSISTANCE IF NEEDED;CALL LIGHT IN REACH;WILL CONTINUE TO MONITOR
[2018-10-29 16:41] VITALS: BP 138/60
--- NOTE | 2018-10-29 17:37 | NUR ---
AT BEDSIDE DISCUSSING POC WITH PATIENT.
[2018-10-29 19:20] VITALS: BP 155/67
--- NOTE | 2018-10-29 21:20 | NUR ---
ASSESSMENT COMPLETED. UPDATED ON POC. O2 INFUSING PER NC PER ORDER. SCHED MEDS GIVEN PER EMAR. IV SITE PATENT AND INFUSING ORDERED IVF WELL. PT. REPORTS SMALL BM AND OFFERED PRUNE JUICE AND PT. DECLINES AND REQUESTS BROTH AND CRANBERRY JUICE; WILL PROVIDE. ENCOURAGED TO CALL FOR ANY NEEDS. CALL LIGHT IS IN REACH.
--- NOTE | 2018-10-29 23:00 | NUR ---
PT. SITTING UP IN BED AND REPORTS SHE IS STILL HAVING BLOODY STOOL. NOTIFIED PT. TO CALL THIS LEAD CASTER HELPER TO INSPECT EVERY STOOL AND NOT TO FLUSH; VERBALIZES UNDERSTANDING.
[2018-10-29 23:20] VITALS: BP 165/64
[2018-10-30] VITALS (7 sets, daily range): BP systolic 121–160; BP diastolic 46–79
--- NOTE | 2018-10-30 01:05 | NUR ---
PT. RESTING IN BED WATCHING TV, NO DISTRESS NOTED; DENIES NEEDS/PAIN. REASSESSED B/P 155/63. ENCOURAGED TO CALL FOR ANY NEEDS.
--- NOTE | 2018-10-30 03:05 | NUR ---
RESTING IN BED WITH NO DISTRESS NOTED; DENIES NEEDS AND VOICES NO CONCERNS. CALL LIGHT IS IN REACH.
[2018-10-30 05:17] LABS: HEMOGLOBIN 9.8 g/dl (12.0-16.0); IMMATURE GRANULOCYTES 0.2 % (0.0-5.0); MEAN CELL VOLUME 82.2 fL CALC (80.0-100.0); MEAN CORPUSCULAR HGB CONC 31.6 g/L CALC (32.0-36.0); NEUT# 3.94 thou/uL (2.00-7.15); RED BLOOD COUNT 3.77 mill/uL (4.20-5.60); RED CELL DISTRI WIDTH 17.8 % (11.5-15.5)
[2018-10-30 05:34] LABS: CREATININE 1.1 mg/dL (0.5-1.0); POTASSIUM 4.7 mmol/l (3.5-5.1)
--- NOTE | 2018-10-30 06:32 | NUR ---
PT. DOWN TO XRAY VIA W/C ACCOMPANIED BY CREDIT CONTROL CLERK.
--- NOTE | 2018-10-30 06:48 | NUR ---
PT. BACK TO THE FLOOR FROM XRAY VIA W/C
--- NOTE | 2018-10-30 07:05 | NUR ---
REPORT RECEIVED FROM XENARN;PT RESTING IN SEMI FOWLERS POSITION;INTRODUCED SELF TO PT AND POC DISCUSSED;RESPIRATIONS EVEN AND UNLABORED ON O2 @ 2L VIA NC;IV FLUIDS INFUSING TO LFA WITH EASE;TELE MONITORING IN PLACE;CONNELLY CATHETER APPEARS PATENT;PT DENIES ANY ADDITIONAL NEEDS AT THIS TIME AND IS ENCOURAGED TO CALL FOR ASSISTANCE IF NEEDED;CALL LIGHT IN REACH;WILL CONTINUE TO MONITOR
--- NOTE | 2018-10-30 08:20 | NUR ---
PT RESTING IN SEMI FOWLERS POSITION, A&O X3;VS OBTAINED AND ASSESSMENT COMPLETED;PT DENIES ANY CURRENT PAIN OR DISCOMFORTS, PAIN SCALE AND REPORTING EDUCATED;RESPIRATIONS EVEN AND UNLABORED,SHALLOW ON O2 @ 2L VIA NC PT IS HOME O2 DEPENDENT;ABDOMEN SOFT ON PALPATION AND ACTIVE IN ALL 4 QUADRANTS;CONNELLY CATHETER PATENT DRAINING CLEAR/YELLOW URINE WITH EASE TO GRAVITY, STAT LOCK TO RIGHT THIGH NOTED;STRONG PEDAL PULSES;SKIN INTACT;TELE MONITORING IN PLACE;#22G TO LEFT FOREARM INFUSING NS @ 100ML/HR PER ORDER,SITE APPEARS HEALTHY;ACCUCHECK 88, NO COVERAGE NEEDED AT THIS TIME;PT DENIES ANY ADDITIONAL NEEDS AND IS ENCOURAGED TO CALL FOR ASSISTANCE IF NEEDED;FALL PRECAUTIONS IN PLACE WITH BED IN THE LOWEST POSITION AND CALL LIGHT IN REACH;WILL CONTINUE TO MONITOR
--- NOTE | 2018-10-30 08:34 | NUR ---
AT BEDSIDE DISCUSSING POC INCLUDING PT CONSULT, DIET ADVANCE AND REHAB;PT VERBALIZES UNDERSTANDING.
--- NOTE | 2018-10-30 09:31 | NUR ---
CONNELLY CATHETER EMPTIED OF 350ML OF CLEAR/YELLOW URINE.CONNELLY CATHETER THEN REMOVED PER ORDER,PT TOLERATED WELL.WILL MONITOR FOR POST VOID.
--- NOTE | 2018-10-30 11:00 | NUR ---
PT RESTING IN SEMI FOWLERS POSITION;RESPIRATIONS EVEN AND UNLABORED ON O2 @ 2L VIA NC;PT DENIES ANY CURRENT PAIN BUT DOES REPORTS NAUSEA. TO BE NOTIFIED;IV FLUIDS CONTINUE @ 75ML/HR PER ORDER;TELE MONITORING IN PLACE;ACCUCHECK 125, NO COVERAGE NEEDED AT THIS TIME;PT DENIES ANY ADDITIONAL NEEDS AND IS ENCOURAGED TO CALL FOR ASSISTANCE IF NEEDED;CALL LIGHT IN REACH;WILL CONTINUE TO MONITOR
--- NOTE | 2018-10-30 11:05 | NUR ---
NOTIFED OF PT NAUSEA.NEW ORDER RECEIVED.
--- NOTE | 2018-10-30 11:23 | NUR ---
PT MEDICATED WITH PRN ZOFRAN 4MG IVP FOR NAUSEA AT THIS TIME.WILL MONITOR FOR EFFECTIVENESS
--- NOTE | 2018-10-30 13:39 | NUR ---
PHYSICAL THERAOY WORKING WITH PATIENT.
--- NOTE | 2018-10-30 15:35 | NUR ---
PT APPEARS TO BE SLEEPING IN SEMI FOWLERS POSITION;RESPIRATIONS EVEN AND UNLABORED ON O2 @ 2L VIA NC;NO S/S OF DISTRESS NOTED;TELE MONITORING IN PLACE;IV FLUIDS INFUSING TO LFA @ 75ML/HR PER ORDER;ASSESSMENT REMAINS UNCHANGED AT THIS TIME;FALL PRECAUTIONS IN PLACE WITH CALL LIGHT IN REACH;WILL CONTINUE TO MONITOR
--- NOTE | 2018-10-30 19:26 | NUR ---
PT. SITTING UP IN BED WITH NO DISTRESS NOTED; DENIES NEEDS/PAIN. ASSESSMENT COMPLETED. IV SITE PATENT AND INFUSING IVF WELL. UPDATED ON POC. ENCOURAGED TO CALL FOR ANY NEEDS. CALL LIGHT IS IN REACH.
--- NOTE | 2018-10-30 20:46 | NUR ---
PT. SITTING UP IN BED WITH NO DISTRESS NOTED; DENIES NEEDS. SCHED MEDS GIVEN. CALL LIGHT IS IN REACH.
--- NOTE | 2018-10-30 23:14 | NUR ---
ASSISTED TO AND FROM THE BATHROOM. DENIES FURTHER NEEDS. CALL LIGHT IS IN REACH.
--- NOTE | 2018-10-31 02:05 | NUR ---
ASSISTED TO THE BATHROOM AND INSTRUCTED TO PULL CORD WHEN FINISHED.
[2018-10-31 04:00] VITALS: BP 132/65
--- NOTE | 2018-10-31 05:43 | NUR ---
PT. RESTING IN BED ON LEFT SIDE WITH NO DISTRESS NOTED. DENIES NEEDS/PAIN. ENCOURAGED TO CALL FOR ANY NEEDS. CALL LIGHT IS IN REACH.
--- NOTE | 2018-10-31 06:15 | NUR ---
IV SITE APPEARS SLIGHTLY PUFFY. PT. DECLINES PAIN TO SITE. OFFERED TO RESTART IV SITE AND REMOVE THIS ONE. PT. STATES,"IT'S ALRIGHT IT DOESNT HURT, LEAVE IT ALONE." INSTRUCTED PT. TO CALL IF IV SITE STARTS TO HURT OR HAS AN INCREASE IN SWELLING. PT. VERBALIZES UNDERSTANDING.
--- NOTE | 2018-10-31 06:45 | NUR ---
PT. IN AGREEMENT TO REMOVE IV SITE DUE TO SWELLING, CATHETER TIP INTACT . PT. IS INISISTANT ON NOT WANTING ANOTHER IV SITE TO BE PLACED. NOTIFIED DR. AGUIRRE THAT PT. IS REQUESTING TO LEAVE IV SITE OUT. PER OKAY TO LEAVE IV SITE OUT UNTIL HE REASSESSESS PT. THIS AM.WILL PLACE ORDER IN CHART.
[2018-10-31 08:00] VITALS: BP 137/54
--- NOTE | 2018-10-31 08:00 | NUR ---
PT SEEN AWAKE, ALERT, ORIENTED X 3. PT USING OXYGEN ALL TIMES, 2 LPM, LUNGS CLEAR BUT DIMINISHED. NO COMPLAINT OF BLEEDING RECTALLY.
--- NOTE | 2018-10-31 10:43 | NUR ---
IV SITE LOST, ZOSYN IV DC'D CHANGED TO PO BACTRIM DS (PT ALLERGIC TO MOXIFLOXACIN)
[2018-10-31 10:45] VITALS: BP 166/55
[2018-10-31] MEDS ORDERED: LEVAQUIN750 MG PO (12:26)
[2018-10-31] MEDS ORDERED: CIPROFLOXACN500 MG PO (12:26)
[2018-10-31 14:15] VITALS: BP 150/70
--- NOTE | 2018-10-31 15:13 | NUR ---
DR AGUIRRE HAS DISCHARGED PT TO [facility]. PT HAS BEEN PICKED UP BY THEIR PERSONNEL JUST NOW. PT LEAVES IN STABLE CONDITION VIA WHEELCHAIR. PT DID VERBALIZE UNDERSTANDING OF DC INSTRUCTIONS.
--- NOTE | 2018-10-31 15:45 | NUR ---
REPORT HAS BEEN CALLED TO SAMANTHA AT [facility].
== END 2018-10-31 15:00 | DRG 378 ==
LOC: MS2 12:31
PROVIDERS: ADMIT Internal Medicine Geriatric Medicine; ATTEND Internal Medicine Geriatric Medicine
PROC: 30233N1 Transfusion of Nonautologous Red Blood Cells into Peripheral Vein, Percutaneous Approach (ICD-10-PCS; principal; 2018-10-28)
PROC: 30233N1 Transfusion of Nonautologous Red Blood Cells into Peripheral Vein, Percutaneous Approach (ICD-10-PCS; 2018-10-28)
DX: K57.33 Diverticulitis of large intestine without perforation or abscess with bleeding (principal); D62 Acute posthemorrhagic anemia; F19.20 Other psychoactive substance dependence, uncomplicated; I11.0 Hypertensive heart disease with heart failure; I50.9 Heart failure, unspecified; I25.10 Atherosclerotic heart disease of native coronary artery without angina pectoris; J44.9 Chronic obstructive pulmonary disease, unspecified; E11.42 Type 2 diabetes mellitus with diabetic polyneuropathy; K21.9 Gastro-esophageal reflux disease without esophagitis; K27.9 Peptic ulcer, site unspecified, unspecified as acute or chronic, without hemorrhage or perforation; E86.0 Dehydration; E03.9 Hypothyroidism, unspecified; M19.90 Unspecified osteoarthritis, unspecified site; E78.5 Hyperlipidemia, unspecified; G89.29 Other chronic pain; R09.02 Hypoxemia; R63.4 Abnormal weight loss; Z68.20 Body mass index [BMI] 20.0-20.9, adult; Z79.4 Long term (current) use of insulin; Z95.1 Presence of aortocoronary bypass graft; Z95.810 Presence of automatic (implantable) cardiac defibrillator; Z95.5 Presence of coronary angioplasty implant and graft; Z85.3 Personal history of malignant neoplasm of breast
CPT/HCPCS: P9016

== ENCOUNTER 2019-04-16 18:21 | Inpatient (IN) | payer MEDICARE, MEDICAID ==
[~2019-04-16] VITALS: Ht 165.1 cm; Wt 59.4 kg
[~2019-04-16 18:21] MED LIST changes: +CIPROFLOXACN500 MG PO
--- NOTE | 2019-04-16 18:37 | NUR ---
PATIENT ARRIVES TO ROOM VIA EMS ON 2L/MIN ON NASAL CANNULA. ALERT AND ORIENTED TO SELF AND PLACE. PATIENT ABLE TO FOLLOW COMMANDS.
--- NOTE | 2019-04-16 18:59 | NUR ---
PT IS POOR HISTORIAN, SISTER BROUGHT IN BAG OF MEDS BUT UNABLE TO VERIFY MEDS OR LAST TIME TAKEN. UNABLE TO RECONCILE MEDICATIONS.
[2019-04-16 19:20] LABS: HEMATOCRIT 39.7 % (37.0-47.0); HEMOGLOBIN 12.9 g/dl (12.0-16.0); IMMATURE GRANULOCYTES 0.4 % (0.0-5.0); MEAN CELL VOLUME 90.8 fL CALC (80.0-100.0); MEAN CORPUSCULAR HGB 29.5 pG CALC (26.0-32.0); MEAN CORPUSCULAR HGB CONC 32.5 g/L CALC (32.0-36.0); NEUT# 3.05 thou/uL (2.00-7.15); RED BLOOD COUNT 4.37 mill/uL (4.20-5.60); RED CELL DISTRI WIDTH 13.5 % (11.5-15.5)
[2019-04-16 19:32] LABS: BILIRUBIN, TOTAL 0.9 mg/dL (0.0-1.4); CREATININE 1.3 mg/dL (0.5-1.0); TOTAL PROTEIN 8.5 g/dL (6.3-8.2)
[2019-04-16 19:43] LABS: ALBUMIN 4.1 g/dL (3.2-5.0); POTASSIUM 4.5 mmol/l (3.5-5.1)
[2019-04-16 19:53] LABS: PROTHROMBIN TIME 10.7 SECONDS (9.0-12.5)
--- NOTE | 2019-04-16 21:00 | NUR ---
PT RESTING ON STRETCHER. ASSISTED W/REPOSITIONING. IV SITE HEALTHY.
--- NOTE | 2019-04-16 22:16 | NUR ---
RECEIVED REPORT FROM ORGE ESCOBAR. MEDICATED FOR HIGH BP WITH APRESOLINE. WILL MONITOR FOR IMPROVEMENT. REPORT ALREADY GIVEN TO ARLETTE BY LU[facility].
--- NOTE | 2019-04-16 22:19 | NUR ---
REPORT PROVIDED TO ARLETTE NURSE ON [facility]. PT MEDICATED FOR ELEVATED BP
--- NOTE | 2019-04-16 22:27 | NUR ---
REPORT PROVIDED TO ROGE REYNOSO, IN ER.
[2019-04-16 22:58] LABS: URINE BILIRUBIN - DIPSTICK NEGATIVE (NEGATIVE); URINE BLOOD DIPSTICK TRACE-LYSED (NEGATIVE); URINE COLOR YELLOW; URINE GLUCOSE - DIPSTICK NEGATIVE (NEGATIVE); URINE KETONE NEGATIVE (NEGATIVE); URINE LEUK ESTERASE NEGATIVE (NEGATIVE); URINE NITRITE - DIPSTICK NEGATIVE (Negative); URINE PH 5.5 (4.5-8.0); URINE PROTEIN - DIPSTICK 100 mg/dL (NEG-TRACE); URINE UROBILINOGEN - DIPSTICK 0.2 E.U./dL (0.2)
--- NOTE | 2019-04-16 23:00 | NUR ---
BP DOWN TO 152/72 PT TRANSPORTED TO FLOOR VIA STRETCHER WITH 02 VIA NC.
[2019-04-16 23:02] LABS: COCAINE NEGATIVE (NEGATIVE); METHADONE NEGATIVE (NEGATIVE); TETRAHYDROCANNABIONOL NEGATIVE (NEGATIVE)
[2019-04-16 23:03] LABS: BARBITURATES NEGATIVE (NEGATIVE); TRICYLIC ANTIDEPRESSANTS NEGATIVE (NEGATIVE)
[2019-04-16 23:04] LABS: OXCYCODONE NEGATIVE (NEGATIVE)
[2019-04-16 23:09] LABS: URINE AMORPH SEDIMENT FEW hpf (NONE-FEW); URINE SQUAMOUS EPITHELIAL CELL FEW EPI/hpf (0-FEW)
[2019-04-16 23:10] VITALS: BP 138/57
--- NOTE | 2019-04-16 23:10 | NUR ---
PT ARRIVED TO MS2 VIA STRETCHER ACCOMPANIED BY ER NURSE, PT ALERT AND ORIENTED X2, ORIENTED PT TO ROOM AND CALL LIGHT, DISCUSSED POC, PT SOMEWHAT CONFUSED. BED ALARM PLACED FOR SAFETY. PT ONLY REQUEST AT THIS TIME IS TO WARM THE ROOM, WARM BLANKETS PROVIDED. SKIN INTACT. ADMISSION ASSESSMENT COMPLETED, CALL LIGHT IN REACH,CONTINUE TO MONITOR.
--- NOTE | 2019-04-17 03:10 | NUR ---
PT RESTING IN BED, ASKING IF HER SISTER IS HERE, INFORMED PT THAT WHEN SHE ARRIVED TO FLOOR SHE ARRIVED ALONE, PT STATES SHE HEARD HER SISTER "JUST A MINUTE AGO" YELLING HER NAME. INFORMED PT THAT NO ONE WAS YELLING OUT HER NAME THAT HER SISTER WOULD MOST LIKELY RETURN IN THE AM. BED ALARM IN PLACE FOR SAFETY. CALL LIGHT IN REACH,CONTINUE TO MONITOR.
[2019-04-17 03:45] VITALS: BP 149/70
[2019-04-17 05:42] LABS: CREATININE 1.3 mg/dL (0.5-1.0); POTASSIUM 3.7 mmol/l (3.5-5.1)
--- NOTE | 2019-04-17 08:00 | NUR ---
REPORT RECEIVED FROM MARCIA CHONG. PT SITTING IN CHAIR AT BEDSIDE. DENIES PAIN. REPORTING OF CONCERNS ENCOURAGED. FALL PRECAUTIONS REINFORCED. BED ALARM ATTACHED TO GOWN FOR SAFETY. PT ALERT, ORIENTED TO PERSON ONLY. PT. REPORTS TO BEING IN [place]. PT REORIENTED TO PLACE, TIME AND SITUATION. O2 @ 2L VIA NC. CALL LIGHT REVIEWED AND IN REACH.
[2019-04-17 09:00] VITALS: BP 181/68
[2019-04-17] MEDS ORDERED: LOPRESSOR50 M1 PO (11:22)
[2019-04-17] MEDS ORDERED: NEURONTIN300 MG PO (11:23)
[2019-04-17] MEDS ORDERED: VITAMIN D50000 UNIT PO (11:26)
[2019-04-17] MEDS ORDERED: VALIUM2 MG PO (11:27)
[2019-04-17] MEDS ORDERED: CLOPIDOGREL75 MG PO (11:29)
[2019-04-17] MEDS ORDERED: BUMETANIDE1 MG PO (11:30)
[2019-04-17] MEDS ORDERED: SYMBICORT1 AE1 IN (11:31)
[2019-04-17] MEDS ORDERED: LIPITOR80 M1 PO (11:31)
[2019-04-17] MEDS ORDERED: ALDACTONE25 MG PO (11:32)
[2019-04-17] MEDS ORDERED: MAG PO (11:33)
[2019-04-17] MEDS ORDERED: DEXILANT60 MG PO (11:33)
[2019-04-17] MEDS ORDERED: ONDANSETRON HCL4 MG PO (11:36)
[2019-04-17] MEDS ORDERED: COZAAR25 MG PO (11:37)
[2019-04-17] MEDS ORDERED: XARELTO20 MG PO (11:38)
[2019-04-17] MEDS ORDERED: ZYLOPRIM100 MG PO (11:38)
[2019-04-17] MEDS ORDERED: ASPIRIN 8181 MG PO (11:38)
[2019-04-17 11:41] LABS: MAGNESIUM 1.5 mg/dL (1.6-2.3)
--- NOTE | 2019-04-17 12:00 | NUR ---
DR. GANDHI IN TO SEE PT. AT THIS TIME. PLAN OF CARE UPDATED AT THIS TIME.
[2019-04-17 15:54] VITALS: BP 158/47
--- NOTE | 2019-04-17 16:06 | NUR ---
PT LEFT FLOOR VIA WC ACCOMPANIED BY COOKING CASING AND DRYING SUPERVISOR TO CT. O2 @ 2L VIA NC IN PLACE.
[2019-04-17 19:55] VITALS: BP 157/67
--- NOTE | 2019-04-17 20:33 | NUR ---
PT MEDICATED AND ASSESSMENT COMPLETED AT THIS TIME. NO S/O DISTRESS NOTED. AIDE JUST IN PRIOR, ASSISTING PT FROM RECLINER TO BED.
--- NOTE | 2019-04-18 01:00 | NUR ---
PT SET OFF BED ALARM, SHE WAS ATTEMPTING TO GET UP TO BSC, ASSISTED PT TO BSC AND BACK TO BED. PT IS VERY UNSTEADY ON HER FEET. BED ALARM RESET.
--- NOTE | 2019-04-18 02:23 | NUR ---
PT SET BED ALARM OFF, DENIED NEED TO GET UP, SHE WAS "JUST TURNING OVER." PT WAS LOOKING AT HER CELL PHONE, NO S/O DISTRESS NOTED.
[2019-04-18 03:30] VITALS: BP 158/56
--- NOTE | 2019-04-18 03:45 | NUR ---
PT SLEEPING AT THIS TIME. NO S/O DISTRESS NOTED. CALL LIGHT W/IN REACH AND BED ALARM ON.
[2019-04-18 06:10] LABS: HEMATOCRIT 36.7 % (37.0-47.0); HEMOGLOBIN 11.7 g/dl (12.0-16.0); IMMATURE GRANULOCYTES 0.2 % (0.0-5.0); MEAN CELL VOLUME 91.5 fL CALC (80.0-100.0); MEAN CORPUSCULAR HGB 29.2 pG CALC (26.0-32.0); MEAN CORPUSCULAR HGB CONC 31.9 g/L CALC (32.0-36.0); NEUT# 3.21 thou/uL (2.00-7.15); RED BLOOD COUNT 4.01 mill/uL (4.20-5.60); RED CELL DISTRI WIDTH 13.7 % (11.5-15.5)
[2019-04-18 06:41] LABS: CREATININE 1.2 mg/dL (0.5-1.0); MAGNESIUM 1.8 mg/dL (1.6-2.3); POTASSIUM 3.7 mmol/l (3.5-5.1)
[2019-04-18 07:59] VITALS: BP 169/58
--- NOTE | 2019-04-18 08:00 | NUR ---
PT RESTING IN BED, NO SIGNS OF DISTRESS NOTED, RESP EVEN AND UNLABORED. PT ALERT AND ORIENTED X3. DISCUSSED POC, PT VOICES NO NEEDS OR COMPLAINTS AT THIS TIME. PT ALERT AND ORIENTED X2, ASSESSMENT COMPLETED. CALL LIGHT IN REACH,CONTINUE TO MONITOR.
[2019-04-18 11:37] VITALS: BP 150/68
--- NOTE | 2019-04-18 12:24 | NUR ---
PT RESTING IN BED, NO SIGNS OF DISTRESS NOTED, RESP EVEN AND UNLABORED. PT VOICES NO NEEDS OR COMPLAINTS AT THIS TIME. CALL LIGHT IN REACH,CONTINUE TO MONITOR.
--- NOTE | 2019-04-18 13:20 | NUR ---
NIECE AT BEDSIDE, CONCERNED REGARDING HER AUNT. FAMILY MEMBER CALLED [facility] AND SPOKE WITH CLERICAL GRADER PER [place]IC[place] REQUESTS PT BE TRANSFERRED TO [place]. SOCCER REFEREE PROVIDED NUMBER TO [facility] [employer] [facility] IN [place]. ALSO INFORMED CLERICAL GRADER THAT PT HAS A [employer] PAC[employer]ER AND PT HAS AN EF OF 30%. DISCUSSED WITH TOEING STOCKINGS AND CHILDBIRTH AND INFANT CARE TEACHER THAT POSSIBILITY FOR PT TO BE TRANSFERRED WOULD HAVE TO BE THAT PT NEEDS HIGHER LEVEL OF CARE AND MEDICALLY WE COULD NOT PROVIDED. PT STATES SHE FEELS BETTER. INFORMED NIECE THAT A TRANFER ISN'T NECESSARY AT THIS TIME. PT AND FAMILY VERBALIZED UNDERSTANDING. CALL LIGHT IN REACH,CONTINUE TO MONITOR.
[2019-04-18 16:13] VITALS: BP 170/65
--- NOTE | 2019-04-18 16:30 | NUR ---
IV LEAKING EMS SITE REMOVED, CATHETER INTACT. ATTEMPTED NEW IV SITE, UNSUCCESSFUL. WILL NOTIFY RN TO ATTEMPT IV SITE. PT AGREES.
--- NOTE | 2019-04-18 17:00 | NUR ---
CASE MANAGEMENT AT BEDSIDE TO DISCUSS PLANS AFTER DISCHARGE WITH PT AND FAMILY. CALL LIGHT IN REACH,CONTINUE TO MONITOR.
[2019-04-18 17:52] VITALS: BP 158/80
[2019-04-18 18:25] VITALS: BP 154/57
--- NOTE | 2019-04-18 20:00 | NUR ---
PHYSICAL ASSESMENT COMPLETE. PLAN OF CARE REVIEWED. CALL METZ IN REACH, AGREES TO CALL PRN.
--- NOTE | 2019-04-19 00:44 | NUR ---
PT APPEARS TO BE SLEEPING COMFORTABLY, NO APPARENT DISTRESS, RESP REG/UNLABORED, CALL METZ REMAINS WITHIN REACH.
[2019-04-19 03:40] VITALS: BP 184/75
[2019-04-19 04:41] VITALS: BP 146/62
--- NOTE | 2019-04-19 04:42 | NUR ---
F/U AFTER APRESOLINE 10MG IV ADMIN (SEE MAR) MANUAL B/P 146/62mmHg, PT REMAINS ASYMPTOMATIC. RESTING IN BED COMFORTABLY, DENIES NEEDS AT THIS TIME. CALL METZ WITHIN REACH, AGREES TO CALL PRN.
--- NOTE | 2019-04-19 08:40 | NUR ---
PAtient in bed resting having breakfast. Head to assessment completed. No signs of distressed noted. Resp even and unlabored. Patient alert and oriented x3. Discuused POC. No c/o pain nor discomfort. Adb area soft and non tender.
[2019-04-19 15:09] LABS: BILIRUBIN, TOTAL 0.9 mg/dL (0.0-1.4); CREATININE 1.2 mg/dL (0.5-1.0); POTASSIUM 4.2 mmol/l (3.5-5.1); TOTAL PROTEIN 7.2 g/dL (6.3-8.2)
[2019-04-19 15:13] LABS: ALBUMIN 3.2 g/dL (3.2-5.0)
[2019-04-19 16:15] VITALS: BP 171/60
[2019-04-19 18:38] VITALS: BP 142/56
--- NOTE | 2019-04-19 20:00 | NUR ---
PT RESTING COMFORTABLY IN BED, PHYSICAL ASSESMENT COMPLETE. PLAN OF CARE REVIEWED W/ PT. CALL METZ WITHIN REACH, AGREES TO CALL PRN.
--- NOTE | 2019-04-20 00:20 | NUR ---
PT APPEARS TO BE SLEEPING COMFORTABLY, RESP REG/UNLABORED, NO APPARENT DISTRESS. CALL METZ REMAINS WITHIN REACH.
--- NOTE | 2019-04-20 00:30 | NUR ---
PT APPEARS TO BE SLEEPING COMFORTABLY, NO APPARENT DISTRESS, RESP REG/UNLABORED. CALL METZ REMAINS WITHIN REACH.
[2019-04-20 03:22] VITALS: BP 179/64
--- NOTE | 2019-04-20 04:33 | NUR ---
PT MEDICATED FOR ELEVATED BP. PT IS WATCHING TV AND TALKATIVE. NO S/O DISTRESS AT THIS TIME. CALL LIGHT W/IN REACH AND PT REMINDED TO CALL NEEDS ARISE.
[2019-04-20 05:18] LABS: HEMATOCRIT 35.6 % (37.0-47.0); HEMOGLOBIN 11.1 g/dl (12.0-16.0); IMMATURE GRANULOCYTES 0.4 % (0.0-5.0); MEAN CELL VOLUME 92.7 fL CALC (80.0-100.0); MEAN CORPUSCULAR HGB 28.9 pG CALC (26.0-32.0); MEAN CORPUSCULAR HGB CONC 31.2 g/L CALC (32.0-36.0); NEUT# 3.55 thou/uL (2.00-7.15); RED BLOOD COUNT 3.84 mill/uL (4.20-5.60); RED CELL DISTRI WIDTH 13.8 % (11.5-15.5)
[2019-04-20 05:49] LABS: ALBUMIN 2.9 g/dL (3.2-5.0); BILIRUBIN, TOTAL 0.7 mg/dL (0.0-1.4); CREATININE 1.3 mg/dL (0.5-1.0); TOTAL PROTEIN 6.4 g/dL (6.3-8.2)
[2019-04-20 05:50] LABS: POTASSIUM 3.3 mmol/l (3.5-5.1)
--- NOTE | 2019-04-20 07:15 | NUR ---
REPORT RECEIVED FROM ROGE COLEMAN;PT APPEARS TO BE SLEEPING IN SEMI FOWLERS POSITION;NO S/S OF DISTRESS NOTED;RESPIRATIONS APPEAR EVEN AND UNLABORED ON O2 @ 3L VIA NC;ALL SAFETY PRECAUTIONS IN PLACE WITH BED IN THE LOWEST POSITION AND CALL LIGHT IN REACH;WILL CONTINUE TO MONITOR
--- NOTE | 2019-04-20 08:35 | NUR ---
PT OOB RESTING IN RECLINER;VS OBTAINED AND ASSESSMENT COMPLETED;PT DENIES ANY CURRENT PAIN OR DISCOMFORTS,PAIN SCALE AND REPORTING EDUCATED;RESPIRATIONS SHALLOW ON O2 @ 3L VIA NC;ABDOMEN SOFT ON PALPATION AND ACTIVE IN ALL 4 QUADRANTS;WEAK PEDAL PULSES;SKIN INTACT;#24G TO LFA INFUSING NS @ 100ML/HR,SITE APPEARS HEALTHY;ACCUCHECK 87,NO COVERAGE NEEDED;LIMB ALERT TO RT ARM NOTED;PT DENIES ANY ADDITIONAL NEEDS AT THIS TIME AND IS ENCOURAGED TO CALL FOR ASSISTANCE IF NEEDED;FALL PRECAUTIONS IN PLACE WITH BED ALARM ON FOR SAFETY;CALL LIGHT IN REACH;WILL CONTINUE TO MONITOR
[2019-04-20 08:37] VITALS: BP 141/62
--- NOTE | 2019-04-20 10:27 | NUR ---
AT BEDSIDE DISCUSSING POC WITH PT.
--- NOTE | 2019-04-20 11:10 | NUR ---
PT TRANSPORTED TO [facility] IN STABLE CONDITION VIA WHEELCHAIR ACCOMPANIED BY VOLUNTEER.
--- NOTE | 2019-04-20 11:24 | NUR ---
PT RETURNED BACK TO MED/SURG ROOM 269 IN STABLE CONDITION VIA WHEELCHAIR ACCOMPANIED BY RENATO CRUZ
--- NOTE | 2019-04-20 11:40 | NUR ---
PT RESTING IN SEMI FOWLERS POSITION;RESPIRATIONS REMAIN EVEN AND UNLABORED ON O2 @ 3L VIA NC;PT DENIES ANY CURRENT PAIN OR NEEDS;IV FLUIDS CONTINUE TO INFUSE TO LFA WITH EASE PER ORDER;ACCUCHECK 133, NO COVERAGE NEEDED;PRUNE JUICE PROVIDED PER REQUEST TO ASSIST IN BOWEL CARE,PT REFUSES MOM;ASSESSMENT REMAINS UNCHANGED AT THIS TIME;;ENCOURAGED TO CALL FOR ASSISTANCE IF NEEDED;FALL PRECAUTIONS IN PLACE WITH CALL LIGHT IN REACH;WILL CONTINUE TO MONITOR
--- NOTE | 2019-04-20 12:38 | NUR ---
I ATTEMPTED TO CALL CELL PHONE @1236PM TO NOTIFY HIM ABOUT THE CONSULTATION ORDERED FOR HIM. THE CONSULT IS FOR HYPERCALCEMIA AND I LEFT A DETAILED MESSAGE WITH OUR DIRECT CALL BACK NUMBER.
--- NOTE | 2019-04-20 15:40 | NUR ---
PT APPEARS TO BE SLEEPING IN SEMI FOWLERS POSITION;RESPIRATIONS EVEN AND UNLABORED ON O2 @ 3L VIA NC;NO S/S OF DISTRESS NOTED;IV FLUIDS INFUSING WITH EASE PER ORDER;ASSESSMENT REMAINS UNCHANGED AT THIS TIME;SAFETY PRECAUTIONS REMAIN IN PLACE WITH CALL LIGHT IN REACH;WILL CONTINUE TO MONITOR
[2019-04-20 16:12] VITALS: BP 145/59
[2019-04-20 18:52] VITALS: BP 155/61
--- NOTE | 2019-04-20 21:13 | NUR ---
PT MEDICATED AND ASSESSMENT COMPLETED AT THIS TIME. NO S/O DISTRESS. PT LOC AND WATCHING TV. POC DISCUSSED W/PT, DINNER TRAY CLEARED AT THIS TIME, PT DID NOT EAT HER DINNER AND EXPRESSED NOT FEELING HUNGRY AND "JUST WANT TO KNOW WHAT'S WRONG WITH ME." TV IS ON AND LIGHTS ARE OFF.
--- NOTE | 2019-04-21 00:35 | NUR ---
PT APPEARS TO BE SLEEPING AT THIS TIME. CALL LIGHT AT SIDE, TV ON LOW LIGHTS ARE OFF. NO S/O DISTRESS.
--- NOTE | 2019-04-21 01:50 | NUR ---
ASSISTED PT TO BSC AND BACK TO BED. PT IS VERY WEAK UPON AMBULATING W/TWO STANDBY ASSISTING. WILL CONTINUE TO MONITOR. BED ALARM PLACED BACK ON AND PT POSITIONED IN BED FOR COMFORT.
--- NOTE | 2019-04-21 03:05 | NUR ---
PT APPEARS TO BE SLEEPING, NO S/O DISTRESS NOTED.
[2019-04-21 03:22] VITALS: BP 148/69
[2019-04-21 05:38] LABS: HEMATOCRIT 34.5 % (37.0-47.0); HEMOGLOBIN 10.9 g/dl (12.0-16.0); MEAN CELL VOLUME 90.8 fL CALC (80.0-100.0); MEAN CORPUSCULAR HGB 28.7 pG CALC (26.0-32.0); MEAN CORPUSCULAR HGB CONC 31.6 g/L CALC (32.0-36.0); RED BLOOD COUNT 3.8 mill/uL (4.20-5.60)
[2019-04-21 06:04] LABS: ALBUMIN 2.8 g/dL (3.2-5.0); BILIRUBIN, TOTAL 0.6 mg/dL (0.0-1.4); CREATININE 1.4 mg/dL (0.5-1.0); MAGNESIUM 1.4 mg/dL (1.6-2.3); POTASSIUM 3.1 mmol/l (3.5-5.1); TOTAL PROTEIN 6.2 g/dL (6.3-8.2)
--- NOTE | 2019-04-21 07:15 | NUR ---
REPORT RECEIVED FROM ROGE AGUIRRE;PT APPEARS TO BE SLEEPING IN SEMI FOWLERS POSITION;NO S/S OF DISTRESS NOTED;RESPIRATIONS EVEN AND UNLABORED ON OXYGEN;IV FLUIDS INFUSING WITH EASE PER ORDER;ALL SAFETY;PRECAUTIONS IN PLACE WITH BED IN THE LOWEST POSITION AND BED ALARM ON FOR SAFETY;CALL LIGHT IN REACH;WILL CONTINUE TO MONITOR
[2019-04-21 08:12] VITALS: BP 162/52
--- NOTE | 2019-04-21 08:12 | NUR ---
PT RESTING IN SEMI FOWLERS POSITION,A&O X2;VS OBTAINED AND ASSESSMENT COMPLETED;PT DENIES ANY CURRENT PAIN OR DISCOMOFORTS,PAIN SCALE AND REPORTING EDUCATED;RESPIRATIONS SHALLOW ON O2 @ 2L VIA NC;ABDOMEN SOFT ON PALPATION AND ACTIVE IN ALL 4 QUADRANTS;WEAK PEDAL PULSES;SKIN INTACT;#24G TO LFA INFUSING NS @ 10ML/HR,SITE APPEARS HEALTHY;ACCUCHECK 113, NO COVERAGE NEEDED;MOM AND PRUNE JUICE PROVIDED TO ASSIST WITH BOWEL CARE;PT DENIES ANY ADDITIONAL NEEDS AT THIS TIME AND IS ENCOURAGED TO CALL FOR ASSISTANCE IF NEEDED;FALL PRECAUTIONS IN PLACE WITH CALL LIGHT IN REACH;WILL CONTINUE TO MONITOR
--- NOTE | 2019-04-21 11:45 | NUR ---
PT OOB RESTING IN RECLINER;RESPIRATIONS EVEN AND UNLABORED ON O2 @ 2L VIA NC;PT DENIES ANY CURRENT PAIN;IV MAG INFUSING WITH EASE TO LFA PER ORDER;PT ASSISTED TO BSC AND PASSED A LARGE/FORMED ABDIAZIZ BM AND VLAD CARE PROVIDED;REPOSITIONED INTO RECLINER;PT VERBALIZES UNDERSTANDING OF PLANS TO D/C TO REHAB;PT DENIES ANY ADDITIONAL NEEDS AND IS ENCOURAGED TO CALL FOR ASSISTANCE IF NEEDED;FALL PRECAUTIONS IN PLACE WITH BED ALARM ON FOR SAFETY;CALL LIGHT IN REACH;WILL CONTINUE TO MONITOR
[2019-04-21 15:25] VITALS: BP 134/63
--- NOTE | 2019-04-21 16:00 | NUR ---
PT RESTING IN RECLINER;RESPIRATIONS EVEN AND UNLABORED ON O2 @ 2L VIA NC;PT DENIES ANY CURRENT PAIN OR NEEDS;IV FLUIDS INFUSING WELL TO LFA;PT ENCOURAGED TO CALL FOR ASSISTANCE IF NEEDED;FALL PRECAUTIONS IN PLACE WITH BED ALARM ON FOR SAFETY AND CALL LIGHT IN REACH;WILL CONTINUE TO MONITOR
[2019-04-21 18:33] VITALS: BP 110/53
--- NOTE | 2019-04-21 19:50 | NUR ---
PT RESTING IN RECLINER, ALERT. RESPIRATIONS EVEN AND UNLABORED, LUNGS SOUND CLEAR. PEDAL PULSES ARE WEAK. PT DENIES ANY PAIN OR DISCOMFORT AT THIS TIME. SAFETY PRECAUTIONS IN PLACE. WILL CONTINUE TO MONITOR.
--- NOTE | 2019-04-22 01:20 | NUR ---
PT ASSISTED TO BSC AND INTO BED. SAFETY PRECAUTIONS IN PLACE. WILL CONTINUE TO MONITOR.
[2019-04-22 03:17] VITALS: BP 150/56
--- NOTE | 2019-04-22 04:22 | NUR ---
PT RESTING IN BET NO S/S OF DISTRESS
[2019-04-22 05:22] LABS: CREATININE 1.4 mg/dL (0.5-1.0)
[2019-04-22 05:35] LABS: POTASSIUM 4.3 mmol/l (3.5-5.1)
--- NOTE | 2019-04-22 07:20 | NUR ---
REPORT RECEIVED FROM ROGE ROCK;PT APPEARS TO BE SLEEPING IN RECLINER;RESPIRATIONS EVEN AND UNLABORED ON O2 @ 2L VIA NC;NO S/S OF DISTRESS NOTED;IV FLUIDS INFUSING WITH EASE PER ORDER;ALL SAFETY PRECAUTIONS IN PLACE WITH BED ALARM ON FOR SAFETY AND CALL LIGHT IN REACH;WILL CONTINUE TO MONITOR
[2019-04-22 08:08] VITALS: BP 119/56
--- NOTE | 2019-04-22 09:40 | NUR ---
PT RESTING IN RECLINER,A&O X3 WITH FORGETFULNESS NOTED;VS OBTAINED AND ASSESSMENT COMPLETED;PT DENIES ANY CURRENT PAIN OR DISCOMFORTS,PAIN SCALE AND REPORTING EDUCATED;RESPIRATIONS SHALLOW ON O2 @ 2L VIA NC;ABDOMEN SOFT ON PALPATION AND ACTIVE IN ALL 4 QUADRANTS;WEAK PEDAL PULSES;SKIN INTACT;#24G TO RFA INFUSING NS @ 10ML/HR,SITE APPEARS HEALTHY;ACCUCHECK 110, NO COVERAGE;PT DENIES ANY ADDITIONAL NEEDS AND IS ENCOURAGED TO CALL FOR ASSISTANCE IF NEEDED;FALL PRECAUTIONS IN PLACE WITH BED ALARM ON FOR SAFETY AND CALL LIGHT IN REACH;WILL CONTINUE TO MONITOR
--- NOTE | 2019-04-22 10:11 | NUR ---
PATIENT ID'D BY AND NAME. RECEIVED IN BED SUPINE AND PERFORMED SUPINE TO SIT WITH CG, SIT <-> STAND WITH MIN A. PATIENT INSTRUCTED IN PROPER HAND PLACEMENT FOR SIT<->STAND AND PATIENT PERFORMED WITH MIN A AND USED R.W. TO BATHROOM TO PERFORM GROOMING WITH CG FOR SAFETY. PATIENT WASHED FACE WITH SET UP AND COMBED HAIR WITH S. PATIENT LEFT SITTING IN CHAIR WITH ALARM ATTATCHED AND CALL LIGHT AT SIDE. PATIENT IS MOTIVATED FOR TREATMENT.
--- NOTE | 2019-04-22 11:40 | NUR ---
PT RESTING IN SEMI FOWLERS POSITION;RESPIRATIONS EVEN AND UNLABORED,SHALLOW ON O2 @ 2L VIA NC;PT DENIES ANY CURRENT PAIN OR NEEDS;IV SITE PATENT INFUSING NORMAL SALINE PER ORDER;ACCUCHECK 243, PT COVERED WITH SLIDING SCALE NOVOLOG PER ORDER;PT DENIES ANY ADDITIONAL NEEDS AND IS ENCOURAGED TO CALL FOR ASSISTANCE IF NEEDED;FALL PRECAUTIONS IN PLACE WITH BED ALARM ON FOR SAFETY;CALL LIGHT IN REACH;WILL CONTINUE TO MONITOR
--- NOTE | 2019-04-22 14:58 | NUR ---
PHYSICAL THERAOY WORKING WITH PT.
--- NOTE | 2019-04-22 15:43 | NUR ---
Pt resting in bed sleeping, awoke to gentle touching. She moved supine to sit with min assist x 1 and stood with CGA. pt ambulated 1x 40' with walker and [address]. Pt posture was flexed and looking down on floor, verbal cues required to stand tall and proper placement of walker. Pt would set 2 legs on floor at times instead of all 4 legs. Pt was left in bed with call del rosario in reach. [facility] 14 IRF/SNF
--- NOTE | 2019-04-22 16:00 | NUR ---
PT APPEARS TO BE SLEEPING IN SEMI FOWLERS POSITION;RESPIRATIONS EVEN AND UNLABORED ON O2 @ 2L VIA NC;NO S/S OF DISTRESS NOTED;IV FLUIDS INFUSING WITH EASE TO LFA;ASSESSMENT REMAINS UNCHANGED AT THIS TIME;SAFETY PRECAUTIONS REMAIN IN PLACE WITH BED ALARM ON FOR SAFETY;CALL LIGHT IN REACH;WILL CONTINUE TO MONITOR
[2019-04-22 16:04] VITALS: BP 148/61
[2019-04-22 19:33] VITALS: BP 151/54
--- NOTE | 2019-04-22 19:45 | NUR ---
PHYSICAL ASSESMENT COMPLETE. PLAN OF CARE REVIEWED WITH PATIENT. PATIENT DENIES QUESTIONS, VERBALIZES UNDERSTANDING. PT VERBALIZES WANTING TO GO HOME VS. REHAB, ALLOWED PT TIME TO DISCUSS CONCERNS, TEACHING ON REHAB AND ITS IMPORTANCE IN RESTORING HER STRENGTH AND MAKING SURE SHE CAN RETURN HOME SAFELY DISCUSSED. PT VERBALIZES UNDERSTANDING. PT DENIES FURTHER NEEDS AT THIS TIME, CALL METZ WITHIN REACH. AGREES TO CALL PRN.
--- NOTE | 2019-04-22 20:45 | NUR ---
PT ASSISTED TO BSC AND BACK TO BED. PT STATED THAT SHE "NEEDS TO LEAVE." WHEN ASKED WHY SHE STATED, "BECAUSE THE NURSE TOLD ME I WAS GOING TO REHAB." I EXPLAINED TO THE PT THAT DISCHARGE ORDERS WERE NOT PLACED YET AND SHE WOULD PROBABLY BE GOING TO REHAB TOMORROW. PT WAS SLIGHTLY ANXIOUS, BUT APPEARS TO UNDERSTAND.
--- NOTE | 2019-04-22 23:58 | NUR ---
STAND BY ASSIST TO BSC THEN PT BACK TO BED. RESTING COMFORTABLY, DENIES ANY NEEDS AT THIS TIME, CALL METZ WITHIN REACH-AGREES TO CALL PRN.
[2019-04-23 03:29] VITALS: BP 145/69
--- NOTE | 2019-04-23 04:10 | NUR ---
RESTING COMFORTABLY IN BED, WATCHING TV. DENIES NEEDS AT THIS TIME. CALL METZ WITHIN REACH,AGREES TO CALL PRN.
[2019-04-23 08:00] VITALS: BP 142/63
[2019-04-23 10:04] LABS: ALBUMIN 2.9 g/dL (3.2-5.0); CREATININE 1.4 mg/dL (0.5-1.0); POTASSIUM 4.8 mmol/l (3.5-5.1)
[2019-04-23 15:33] VITALS: BP 138/54
[2019-04-23 18:51] VITALS: BP 167/99
--- NOTE | 2019-04-23 19:30 | NUR ---
PT RESTING IN BED COMFORTABLY, PHYSICAL ASSESMENT COMPLETED. PLAN OF CARE REVIEWED WITH PT WHO VERBALIZES UNDERSTANDING AND DENIES QUESTIONS AT THIS TIME. CALL METZ IN REACH. AGREES TO CALL PRN.
--- NOTE | 2019-04-24 00:24 | NUR ---
PT SLEEPING COMFORTABLY, NO APPARENT DISTRESS, RESP REG/UNLABORED. CALL METZ REMAINS WITHIN REACH.
[2019-04-24 03:38] VITALS: BP 160/76
--- NOTE | 2019-04-24 04:27 | NUR ---
PT APPEARS TO BE SLEEPING COMFORTABLY, NO APPARENT DISTRESS, RESP REG/UNLABORED. CALL METZ REMAINS WITHIN REACH.
--- NOTE | 2019-04-24 07:15 | NUR ---
BEDSIDE REPORT RECEIVED FROM ROGE GUILLEN. PT IN SEMI FOWLERS. SLEEPING. BED ALARM SET FOR SAFETY. CALL LIGHT WITHIN REACH.
[2019-04-24 08:21] VITALS: BP 176/62
[2019-04-24 08:25] VITALS: BP 176/62
--- NOTE | 2019-04-24 08:46 | NUR ---
PT SITTING UPRIGHT IN BED. EATING BREAKFAST. DENIES PAIN. REPORTING OF CONCERNS ENCOURAGED. PT. ALERT AND ORIENTED AT THIS TIME. FORGETFUL REGARDING SITUATION. FALL PRECAUTIONS REINFORCED. BED ALARM SET FOR SAFETY. O2 @ 2L, REPORTS HX OF O2 DEPENDENCE. DISCHARGE TO REHAB FACILITY TODAY DISCUSSED WITH PT. PT STATES UDNERSTANDING OF PROCESS. CALL LIGHT REVIEWED AND IN REACH.
--- NOTE | 2019-04-24 10:31 | NUR ---
Discharge instructions given. Patient verbalizes understanding of same. Discharged in stable condition via [facility]. All belongings sent with pt.
--- NOTE | 2019-04-24 10:44 | NUR ---
REPORT CALLED TO RUDY AT [facility].
== END 2019-04-24 10:34 | DRG 640 ==
LOC: ED 18:21 → ED-I 21:31 → ED 21:50 → MS2 21:58
PROVIDERS: Family Medicine; Internal Medicine; Internal Medicine Nephrology; Nurse Practitioner Family; ADMIT Internal Medicine; ATTEND Internal Medicine
DX: E83.52 Hypercalcemia (principal); G93.41 Metabolic encephalopathy; Z68.1 Body mass index [BMI] 19.9 or less, adult; I13.0 Hypertensive heart and chronic kidney disease with heart failure and stage 1 through stage 4 chronic kidney disease, or unspecified chronic kidney disease; I48.20 Chronic atrial fibrillation, unspecified; D86.9 Sarcoidosis, unspecified; I50.9 Heart failure, unspecified; E11.22 Type 2 diabetes mellitus with diabetic chronic kidney disease; N18.3 Chronic kidney disease, stage 3 (moderate); E86.0 Dehydration; E11.40 Type 2 diabetes mellitus with diabetic neuropathy, unspecified; E11.51 Type 2 diabetes mellitus with diabetic peripheral angiopathy without gangrene; J43.9 Emphysema, unspecified; I25.10 Atherosclerotic heart disease of native coronary artery without angina pectoris; E83.42 Hypomagnesemia; E87.6 Hypokalemia; D64.9 Anemia, unspecified; E78.5 Hyperlipidemia, unspecified; R09.02 Hypoxemia; R91.8 Other nonspecific abnormal finding of lung field; R63.4 Abnormal weight loss; T38.3X6A Underdosing of insulin and oral hypoglycemic [antidiabetic] drugs, initial encounter; Z90.11 Acquired absence of right breast and nipple; Z95.0 Presence of cardiac pacemaker; Z95.5 Presence of coronary angioplasty implant and graft; Z85.3 Personal history of malignant neoplasm of breast; Z99.81 Dependence on supplemental oxygen; Z87.891 Personal history of nicotine dependence; Z79.01 Long term (current) use of anticoagulants; Z91.81 History of falling; Z79.02 Long term (current) use of antithrombotics/antiplatelets; Z79.82 Long term (current) use of aspirin
CPT/HCPCS: G0378; J3475; J3489

== ENCOUNTER 2019-06-23 | Emergency (ER) | payer MEDICARE, MEDICAID ==
[~2019-06-23] MED LIST changes: +ALDACTONE25 MG PO; +ASPIRIN 8181 MG PO; +BUMETANIDE1 MG PO; +CLOPIDOGREL75 MG PO; +COZAAR25 MG PO; +LIPITOR80 M1 PO; +LOPRESSOR50 M1 PO; +MAG PO; +ONDANSETRON HCL4 MG PO; +VALIUM2 MG PO; +VITAMIN D50000 UNIT PO; +XARELTO20 MG PO; +ZYLOPRIM100 MG PO
[2019-06-23 17:19] LABS: HEMATOCRIT 40.2 % (37.0-47.0); HEMOGLOBIN 13.1 g/dl (12.0-16.0); IMMATURE GRANULOCYTES 0.2 % (0.0-5.0); MEAN CELL VOLUME 86.5 fL CALC (80.0-100.0); MEAN CORPUSCULAR HGB 28.2 pG CALC (26.0-32.0); MEAN CORPUSCULAR HGB CONC 32.6 g/dL CAL (32.0-36.0); NEUT# 5.94 thou/uL (2.00-7.15); RED BLOOD COUNT 4.65 mill/uL (4.20-5.60); RED CELL DISTRI WIDTH 14.3 % (11.5-15.5)
[2019-06-23 17:32] LABS: POTASSIUM 5.1 mmol/l (3.5-5.1)
[2019-06-23 17:42] LABS: CREATININE 2.4 mg/dL (0.5-1.0)
[2019-06-23 17:43] LABS: ALBUMIN 4.7 g/dL (3.2-5.0); BILIRUBIN, TOTAL 0.9 mg/dL (0.0-1.4); TOTAL PROTEIN 9.5 g/dL (6.3-8.2)
[2019-06-23] MEDS ORDERED: PROTONIX40 M2 PO (18:36)
[2019-06-23] MEDS ORDERED: POTASSIUM CHLO20 ME2 PO (18:36)
[2019-06-23 18:50] LABS: ACT PARTIAL THROMBO TIME 23.6 SECONDS (20.0-32.5); PROTHROMBIN TIME 10.2 SECONDS (9.0-12.5)
== END 2019-06-23 19:33 ==
PROVIDERS: Family Medicine
DX: I25.110 Atherosclerotic heart disease of native coronary artery with unstable angina pectoris (principal); I11.0 Hypertensive heart disease with heart failure; I50.9 Heart failure, unspecified; J44.9 Chronic obstructive pulmonary disease, unspecified; Z95.1 Presence of aortocoronary bypass graft; Z95.5 Presence of coronary angioplasty implant and graft; Z86.73 Personal history of transient ischemic attack (TIA), and cerebral infarction without residual deficits; Z95.0 Presence of cardiac pacemaker; Z99.81 Dependence on supplemental oxygen; E83.52 Hypercalcemia
CPT/HCPCS: J1644

== ENCOUNTER 2020-02-20 15:52 | Emergency (ER) | payer MEDICARE, MEDICAID ==
[~2020-02-20] VITALS: Ht 165.1 cm; Wt 70.0 kg
[~2020-02-20 15:52] MED LIST changes: +POTASSIUM CHLO20 ME2 PO
[2020-02-20 16:16] LABS: HEMATOCRIT 33.9 % (37.0-47.0); HEMOGLOBIN 10.8 g/dl (12.0-16.0); IMMATURE GRANULOCYTES 0.5 % (0.0-5.0); MEAN CELL VOLUME 88.5 fL CALC (80.0-100.0); MEAN CORPUSCULAR HGB 28.2 pG CALC (26.0-32.0); MEAN CORPUSCULAR HGB CONC 31.9 g/dL CAL (32.0-36.0); NEUT# 11.76 thou/uL (2.00-7.15); RED BLOOD COUNT 3.83 mill/uL (4.20-5.60); RED CELL DISTRI WIDTH 16.9 % (11.5-15.5)
[2020-02-20 16:48] LABS: BILIRUBIN, TOTAL 0.5 mg/dL (0.0-1.4); CREATININE 1.4 mg/dL (0.5-1.0); TOTAL PROTEIN 8.4 g/dL (6.3-8.2)
[2020-02-20 16:55] LABS: POTASSIUM 6.4 mmol/l (3.5-5.1)
[2020-02-20 17:05] LABS: URINE BILIRUBIN - DIPSTICK NEGATIVE (NEGATIVE); URINE BLOOD DIPSTICK LARGE (NEGATIVE); URINE COLOR YELLOW; URINE GLUCOSE - DIPSTICK NEGATIVE (NEGATIVE); URINE KETONE NEGATIVE (NEGATIVE); URINE PH 5.5 (4.5-8.0); URINE PROTEIN - DIPSTICK 30 mg/dL (NEG-TRACE); URINE SPECIFIC GRAVITY 1.015; URINE UROBILINOGEN - DIPSTICK 0.2 E.U./dL (0.2)
[2020-02-20 17:07] LABS: URINE LEUK ESTERASE MODERATE (NEGATIVE); URINE NITRITE - DIPSTICK POSITIVE (Negative)
[2020-02-20 17:25] LABS: URINE BACTERIA RARE hpf; URINE SQUAMOUS EPITHELIAL CELL FEW EPI/hpf (0-FEW); URINE WBC >100 WBC/hpf (0-5)
[2020-02-20] MEDS ORDERED: BUMETANIDE1 MG PO (18:06)
[2020-02-20] MEDS ORDERED: METOPROL TAR25 MG PO (18:07)
[2020-02-20] MEDS ORDERED: GABAPENTIN100 MG PO ×2 (18:08→18:09)
[2020-02-20] MEDS ORDERED: ZYLOPRIM100 MG PO (18:08)
[2020-02-20] MEDS ORDERED: LORAZEPAM0.5 MG PO (18:10)
[2020-02-20] MEDS ORDERED: LORTAB 5/3255 MG PO (18:10)
[2020-02-20] MEDS ORDERED: ATORVASTATIN CA10 MG PO (18:11)
[2020-02-20] MEDS ORDERED: DEXILANT60 MG PO (18:12)
[2020-02-20] MEDS ORDERED: XARELTO10 MG PO (18:12)
[2020-02-20] MEDS ORDERED: PREDNISONE10 MG PO ×2 (18:13→18:16)
[2020-02-20] MEDS ORDERED: DILTIAZEM120 MG PO (18:14)
[2020-02-20] MEDS ORDERED: KLOR-CON SPRIN10 MEQ PO (18:14)
[2020-02-20] MEDS ORDERED: COLCHICINE0.6 M2 (18:15)
[2020-02-20 19:18] VITALS: BP 176/72
== END 2020-02-20 19:55 | disposition short-term general hospital (02) ==
LOC: ED 15:52
PROVIDERS: Emergency Medicine
PROC: 0T9B70Z Drainage of Bladder with Drainage Device, Via Natural or Artificial Opening (ICD-10-PCS; principal; 2020-02-20)
DX: R79.89 Other specified abnormal findings of blood chemistry (principal); I63.9 Cerebral infarction, unspecified; E86.0 Dehydration; R00.8 Other abnormalities of heart beat; N39.0 Urinary tract infection, site not specified; K21.9 Gastro-esophageal reflux disease without esophagitis; I25.10 Atherosclerotic heart disease of native coronary artery without angina pectoris; I11.0 Hypertensive heart disease with heart failure; I50.9 Heart failure, unspecified; E78.5 Hyperlipidemia, unspecified; E11.649 Type 2 diabetes mellitus with hypoglycemia without coma; M62.82 Rhabdomyolysis; E87.5 Hyperkalemia; B96.20 Unspecified Escherichia coli [E. coli] as the cause of diseases classified elsewhere; Z86.73 Personal history of transient ischemic attack (TIA), and cerebral infarction without residual deficits; Z87.11 Personal history of peptic ulcer disease; Z95.5 Presence of coronary angioplasty implant and graft; Z95.1 Presence of aortocoronary bypass graft; Z95.0 Presence of cardiac pacemaker; Z20.828 Contact with and (suspected) exposure to other viral communicable diseases